=== PATIENT | female | born 1930 | race Caucasian/White ===

== ENCOUNTER 2016-05-01 13:34 | Emergency (ER) | payer MEDICARE, BC ==
[2016-05-01 13:42] VITALS: RESP 16
--- NOTE | 2016-05-01 14:02 | ED ---
General Adult HPI - General Chief complaint: Eye Problems Stated complaint: [facility]/Eye Problem Time Seen by Provider: 05/01/16 13:45 Source: patient, RN notes reviewed Mode of arrival: ambulatory Limitations: no limitations - History of Present Illness Initial comments: 85-year-old female presenting for right eye irritation and unequal pupils. Patient states that she has been crying frequently over the past several days as well as rubbing her eyes frequently secondary to her son passing away. She denies any history of eye surgery or eye issues. She does not use contact lenses. She does sometimes wear reading glasses, but otherwise states her vision has been relatively intact. She denies any headache. She denies any eye pain. She does state there is little irritation in her right eye. She denies any visual changes. She denies any periorbital swelling. She was seen at [facility] who evaluated her and sent to the ED due to unequal pupils. - Related Data Home Medications Medication Instructions Recorded Confirmed Fenofibrate [Tricor] 54 mg PO DAILY 03/24/14 05/01/16 Losartan Potassium [Cozaar] 100 mg PO DAILY 03/24/14 05/01/16 Omeprazole [PriLOSEC] 20 mg PO AC-BRKFST 03/24/14 05/01/16 amLODIPine [Norvasc] 10 mg PO DAILY 03/24/14 05/01/16 Atorvastatin [Lipitor] 80 mg PO HS 05/01/16 05/01/16 Previous Rx's Medication Instructions Recorded Polymyxin B-Trimethoprim Ophth 2 drops BOTH EYES QID 5 Days 05/01/16 [Polytrim Opthalmic] Allergies Allergy/AdvReac Type Severity Reaction Status Date / Time amoxicillin Allergy Unknown Verified 05/01/16 13:59 neomycin Allergy Unknown Verified 05/01/16 13:59 Review of Systems ROS Statement: Those systems with pertinent positive or pertinent negative responses have been documented in the HPI. ROS Other: All systems not noted in ROS Statement are negative. Past Medical History Past Medical History: Hyperlipidemia, Hypertension History of Any Multi-Drug Resistant Organisms: None Reported Past Surgical History: Cholecystectomy, Joint Replacement Additional Past Surgical History / Comment(s): left knee Past Psychological History: No Psychological Hx Reported Smoking Status: Never smoker Past Alcohol Use History: None Reported Past Drug Use History: None Reported General Exam - General Exam Comments Initial Comments: General: Awake and Alert. No acute distress. Does not appear acutely ill. Eyes: Pupils reactive to light B/L, Right pupil is larger than left. EOM intact. No nystagmus. No scleral icterus. HENT: Atraumatic, normocephalic. Mucous membranes moist. Trachea midline. Neck: The neck is supple, there is no tenderness or JVD. Cardiovascular: Regular rate and rhythm. No murmur, rub, or gallop is appreciated. Distal pulses intact. Respiratory: Lungs are clear to auscultation bilaterally. No wheezes, rales, rhonchi. No respiratory distress. Gastrointestinal: Soft, Nontender. No rebound or guarding. Non-distended. No masses or organomegaly noted. No CVA tenderness. Musculoskeletal: No tenderness. Normal ROM. No gross deformity. No strength deficits. Neurological: A&Ox3. CN II-XII grossly intact, There are no obvious motor or sensory deficits. Coordination appears grossly intact. Speech is normal. Skin: Skin is warm and dry and no rashes or lesions are noted. Psychiatric: Cooperative, appropriate mood & affect, normal judgment. Limitations: no limitations Course Vital Signs 05/01/16 05/01/16 13:38 14:20 Temperature 98.3 F 97.9 F Pulse Rate 83 78 Respiratory 16 16 Rate Blood Pressure 127/64 128/70 O2 Sat by Pulse 98 97 Oximetry Medical Decision Making - Medical Decision Making 85-year-old female presenting for right eye irritation. Patient with noted anisocoria with right pupil larger than left. She has not been on any dilating agents. However she has been stimulating her right eye frequently due to irritation and crying. It is likely that this overstimulation is the cause of her pupillary dilation at this point. She has no risk for intracranial hemorrhage or need for CT imaging at this time. She is not on blood thinners. She does not endorse any significant head injury. Visual acuity was performed and unremarkable. She has visual chapman intact in all quadrants of both eyes. Pupils were reactive bilaterally on examination in light and dark. Extraocular movements are intact without pain. She does have mild conjunctivitis of the right eye. Patient will be started on antibiotic drops for this as well as recommendation for OTC lubricating drops. Discussed close follow-up with ophthalmology on Tuesday or Tuesday. Discussed concerning signs symptoms requiring immediate return to the ED including any eye pain or fevers or significant headache. Pt is agreeable with plan and discharge home. Disposition Clinical Impression: Anisocoria, Conjunctivitis Disposition: HOME SELF-CARE Condition: Stable Instructions: Eye Lubricant (Into the eye), Conjunctivitis (ED) Prescriptions: Polymyxin B-Trimethoprim Ophth [Polytrim Opthalmic] 2 drops BOTH EYES QID 5 Days Referrals: Garth Banda MD [Primary Care Provider] - 1-2 days Vladimir Kaiser MD [STAFF PHYSICIAN] - 1-2 days Time of Disposition: 14:18
[2016-05-01 14:24] VITALS: BP 128/70; PULSE 78; TEMP 97.9
== END 2016-05-01 14:20 | disposition home or self-care (01) ==
LOC: EC 13:34
DX: H57.02 Anisocoria (principal); H10.9 Unspecified conjunctivitis; Z79.899 Other long term (current) drug therapy; E78.5 Hyperlipidemia, unspecified; I10 Essential (primary) hypertension; Z88.1 Allergy status to other antibiotic agents; Z88.0 Allergy status to penicillin
CPT/HCPCS: 99282

== ENCOUNTER → 2016-08-03 | Outpatient (CLI) | payer MEDICARE, BC ==
--- NOTE | 2016-08-04 09:02 | BD ---
EXAMINATION TYPE: MG DEXA axial skeleton. DATE OF EXAM: 08/03/2016 10:28 AM CLINICAL HISTORY: Height: 60 inches Weight: 198 FRAX RISK QUESTIONS: Alcohol (3 or more units per day): no Family History (Parent hip fracture): no Glucocorticoids (More than 3mos): no (Ex: prednisone, prednisolone, methylprednisolone, dexamethasone, and hydrocortisone). History of Fracture in Adulthood: no Secondary Osteoporosis: 1. Type 1 Diabetes: no 2. Hyperthyroidism: no 3. Menopause before 45: no 4. Malnutrition: no 5. Chronic liver disease: no Rheumatoid Arthritis: no Current Tobacco Use: never RISK FACTORS HISTORY OF: Family History of Osteoporosis: no Drink Alcohol: very very rarely Active: yes Diet low in dairy products/other sources of calcium: at least one serving a day Postmenopausal woman: yes Take estrogen and/or progesterone medications: not now How long: hormonal contraceptives 3 years Lost more than 2 inches in height since high school: no Frequent falls: no Poor Health: no Hyperparathyroidism: no Adrenal Insufficiency: no MEDICATIONS: Prednisone or other steroids: no Thyroid Medications: no Osteoporosis Medications: no Additional Medications: blood pressure meds, cholesterol meds Additional History: knee replacement EXAM MEASUREMENTS: Bone mineral densitometry was performed using the [employer] System. Bone mineral density as measured about the Lumbar spine is: ----- L1-L4(G/cm2): 1.249 T Score Values are as follows: ----- L2: 0.4 ----- L3: 0.2 ----- L4: 1.8 ----- L1-L4: 0.6 Bone mineral density has: Increased 8.1% since study of: 03/08/2012 Bone mineral density about the R hip (g/cm2): 0.929 Bone mineral density about the L hip (g/cm2): 0.844 T Score values are as follows: -----R Neck: -0.8 -----L Neck: -0.7 -----R Total: 0.2 -----L Total: 0.8 Bone mineral density has: Increased 4.7% since study of: 03/08/2012 IMPRESSION: Normal (Values between +1 and -1 indicate normal bone mass). Consider repeating this study in 5 year s or sooner if there is some new clinical indication.Lumbar Spine, Bilateral Necks & Bilateral Totals NOTE: T-SCORE=SD OF THE YOUNG ADULT MEAN.
--- NOTE | 2016-08-04 13:53 | MM ---
Reason for exam: screening (asymptomatic). Last mammogram was performed 1 year and 2 months ago. History: Patient is postmenopausal. Family history of breast cancer in maternal cousin. Took hormonal contraceptives for 3 years. Physical Findings: A clinical breast exam by your physician is recommended on an annual basis and results should be correlated with mammographic findings. MG 3D Screening Mammo W/Cad Bilateral CC and MLO view(s) were taken. Prior study comparison: May 27, 2015, bilateral MG screening mammo w CAD. April 15, 2014, bilateral MG screening mammo w CAD. There are scattered fibroglandular densities. Finding: There are typically benign grouped calcifications in the left breast. There is a chronic nodularity bilaterally. Increase in number of calcifications since May 27, 2015 and April 15, 2014. ASSESSMENT: Incomplete: need additional imaging evaluation, BI-RAD 0 RECOMMENDATION: Special view mammogram of the left breast. [facility] will attempt to contact patient to return for supplemental views.
== END | disposition home or self-care (01) ==
LOC: RADMAMWWP 09:11
PROVIDERS: ATTEND Family Medicine
DX: Z12.31 Encounter for screening mammogram for malignant neoplasm of breast (principal); N95.1 Menopausal and female climacteric states
CPT/HCPCS: 77080; 77063; G0202

== ENCOUNTER → 2016-08-06 | Outpatient (CLI) | payer MEDICARE, BC ==
--- NOTE | 2016-08-06 09:44 | MM ---
Reason for exam: additional evaluation requested from abnormal screening. Last mammogram was performed less than 1 month ago. History: Patient is postmenopausal. Family history of breast cancer in maternal cousin. Took hormonal contraceptives for 3 years. Physical Findings: Nurse did not find any significant physical abnormalities on exam. MG 3D Work Up W/Cad LT CC with magnification, LM with magnification, and LM view(s) were taken of the left breast. Prior study comparison: August 03, 2016, bilateral MG 3d screening mammo w/cad. May 27, 2015, bilateral MG screening mammo w CAD. Three punctate calcifications in the left breast are likely benign. These results were verbally communicated with the patient and result sheet given to the patient on 08/06/16. ASSESSMENT: Probably benign, BI-RAD 3 RECOMMENDATION: Follow-up diagnostic mammogram of the left breast in 6 months.
== END | disposition home or self-care (01) ==
LOC: RADMAMWWP 08:14
PROVIDERS: ATTEND Family Medicine
DX: R92.8 Other abnormal and inconclusive findings on diagnostic imaging of breast (principal)
CPT/HCPCS: G0206; G0279

== ENCOUNTER 2016-11-24 08:14 | Day surgery (SDC) | payer MEDICARE, BC ==
[2016-11-22 09:41] VITALS: BMI 38.7
[2016-11-24 09:59] VITALS: TEMP 97.7
[2016-11-24] MEDS: LACTATED RINGERS 1,000 ML IV SCH ×2 (09:59→10:33)
[2016-11-24] MEDS ORDERED: PROPOFOL 10 MG/ML 20 ML VIAL IV ONE (10:33)
[2016-11-24] MEDS ORDERED: LIDOCAINE 1% INJ 10MG/ML (20 ML MDV) ONE (10:33)
--- NOTE | 2016-11-24 11:00 | P.PCN ---
Date of Procedure: 11/24/16 Preoperative Diagnosis: Postoperative Diagnosis: Procedure(s) Performed: BRIEF HISTORY: Patient is a 86-year-old pleasant white female, scheduled for an elective colonoscopy as a part of evaluation of prior history of colon polyps. Last colonoscopy was done 6 years ago. PROCEDURE PERFORMED: Colonoscopy. PREOPERATIVE DIAGNOSIS: History of colon polyps. IV sedation per Anesthesia. PROCEDURE: After informed consent was obtained, the patient, was brought into the endoscopy unit. IV sedation was administered by Anesthesia under continuous monitoring. Digital rectal examination was normal. Initially the Olympus CF- 160 flexible video colonoscope was then inserted in the rectum, gradually advanced into the sigmoid colon and further advancement was not possible. The scope was removed and a pediatric colonoscope was then introduced into the rectum and gradually advanced into the cecum without any difficulty. Careful examination was performed as the scope was gradually being withdrawn. Ileocecal valve and the appendiceal orifice were visualized and appeared normal. Prep was excellent. Mucosa of the cecum, ascending colon, transverse colon, descending colon, sigmoid colon, and rectum appeared normal. Moderate sigmoidal reticulosis seen. Retroflexion was performed in the rectum and no lesions were seen. The patient tolerated the procedure well. IMPRESSION: Normal-appearing colon from rectum to cecum with no evidence of colorectal neoplasia . Moderate sigmoid diverticulosis. RECOMMENDATIONS: Findings of this examination were discussed with the patient as well as a family. She was advised to be a high-fiber diet. She does not need to have any further surveillance colonoscopies at her age.. Implants: Indications for Procedure: Operative Findings: Description of Procedure:
[2016-11-24 11:28] VITALS: RESP 16
[2016-11-24 11:37] VITALS: BP 128/72; PULSE 63
== END 2016-11-24 11:58 | disposition home or self-care (01) ==
LOC: ORWHC2ENDO 08:14
PROVIDERS: ATTEND Internal Medicine Gastroenterology
DX: Z12.11 Encounter for screening for malignant neoplasm of colon (principal); K57.30 Diverticulosis of large intestine without perforation or abscess without bleeding; Z86.010 Personal history of colon polyps; K21.9 Gastro-esophageal reflux disease without esophagitis; I10 Essential (primary) hypertension; E78.5 Hyperlipidemia, unspecified; Z79.899 Other long term (current) drug therapy; Z88.1 Allergy status to other antibiotic agents; Z88.0 Allergy status to penicillin; Z91.09 Other allergy status, other than to drugs and biological substances
CPT/HCPCS: J2001; J2704; G0105

== ENCOUNTER 2017-10-08 16:40 | Inpatient (IN) | payer MEDICARE, BC ==
[2017-10-08] MEDS ORDERED: SODIUM CHLORIDE 0.9% 1,000 ML IV ONE (16:51)
[2017-10-08] MEDS ORDERED: PROPOFOL 1,000 MG in EMPTY BAG 1 BAG IV ONE (16:53)
[2017-10-08] MEDS ORDERED: MIDAZOLAM 1 MG/ML 5 ML VIAL IV STA (17:04)
[2017-10-08] MEDS ORDERED: SUCCINYLCHOLINE CHLORIDE VIAL 200 MG/10 ML VIAL IV STA (17:04)
[2017-10-08] MEDS ORDERED: LABETALOL 5 MG/ML VIAL MDV IVP STA (17:07)
[2017-10-08 17:12] LABS: Appearance,Urine Clear (Clear); Bilirubin,Urine Negative (Negative); Blood,Urine Negative (Negative); Color,Urine Yellow; Glucose,Urine (UA) Negative (Negative); Ketones,Urine Negative (Negative); Leukocyte Esterase,Urine Negative (Negative); Nitrite,Urine Negative (Negative); PH, Urine 5.5 (5.0-8.0); Protein,Urine Negative (Negative); Specific Gravity,Urine 1.017 (1.001-1.035); Urobilinogen,Urine <2.0 mg/dL (<2.0)
[2017-10-08 17:19] LABS: Basophils # (A) 0.1 k/uL (0-0.2); Basophils % (A) 1 %; Eosinophils # (A) 0.4 k/uL (0-0.7); Eosinophils % (A) 4 %; HCT 37.5 % (34.0-46.0); HGB 12.3 gm/dL (11.4-16.0); Lymphocytes # (A) 1.7 k/uL (1.0-4.8); Lymphocytes % (A) 19 %; MCH 27.3 pg (25.0-35.0); MCHC 32.8 g/dL (31.0-37.0); MCV 83.3 fL (80.0-100.0); Mean Platelet Volume 7.1; Monocytes # (A) 0.8 k/uL (0-1.0); Monocytes % (A) 9 %; Neutrophils # (A) 5.9 k/uL (1.3-7.7); Neutrophils % (A) 64 %; Platelet Count 351 k/uL (150-450); RBC 4.51 m/uL (3.80-5.40); RDW 15.5 % (11.5-15.5); WBC 9.2 k/uL (3.8-10.6)
[2017-10-08 17:21] LABS: Amphetamine Screen,Urine Not Detected (NotDetected); Barbiturate Screen,Urine Not Detected (NotDetected); Benzodiazepines Screen,Urine Not Detected (NotDetected); Cocaine Screen,Urine Not Detected (NotDetected); Methadone Screen, Urine Not Detected (NotDetected); Opiate Screen,Urine Not Detected (NotDetected); Oxycodone Screen, Urine Not Detected (NotDetected); Phencyclidine Screen,Urine Not Detected (NotDetected); Tricyclic Antidepressant,Urine Not Detected (NotDetected); Urn Cannabinoid Scrn Not Detected (NotDetected)
[2017-10-08 17:25] LABS: Calcium 9.4 mg/dL (8.4-10.2); Magnesium 1.9 mg/dL (1.6-2.3); Total Bilirubin 0.3 mg/dL (0.2-1.3); Total Protein 6.3 g/dL (6.3-8.2)
--- NOTE | 2017-10-08 17:33 | ED ---
Neuro HPI - General Chief Complaint: Neuro Symptoms/Deficit Stated Complaint: Poss.stroke Time Seen by Provider: 10/08/17 16:40 Source: patient, EMS, RN notes reviewed Mode of arrival: EMS Limitations: altered mental status - History of Present Illness Is the patient presenting with stroke symptoms?: Yes Initial Comments: This is a 86-year-old female who apparently was well this morning at 11 AM who was found unresponsive medication floor by her who heard a thump and found her on the floor. She was brought in by EMS she was noted have pinpoint pupils not responsive she was actually well. Initially the pupils were equal then later thought to have the right 73 mm the left side being 1-2 mm. She was assisted with bag valve mask.. No history of stroke in the past. Upon arrival she was found to be in respiratory distress with gagging. - Related Data Home Medications: Home Medications Medication Instructions Recorded Confirmed Fenofibrate [Tricor] 54 mg PO HS 03/24/14 10/08/17 Losartan Potassium [Cozaar] 100 mg PO QAM 03/24/14 10/08/17 amLODIPine [Norvasc] 10 mg PO QAM 03/24/14 10/08/17 Atorvastatin [Lipitor] 80 mg PO HS 05/01/16 10/08/17 Allergies/Adverse Reactions: Allergies Allergy/AdvReac Type Severity Reaction Status Date / Time amoxicillin Allergy Rash/Hives Verified 11/22/16 09:19 neomycin Allergy PER Verified 11/22/16 09:19 ALLERGY TESTING adhesive tape AdvReac RED SKIN, Verified 11/22/16 09:39 Review of Systems ROS Statement: Those systems with pertinent positive or pertinent negative responses have been documented in the HPI. ROS Other: All systems not noted in ROS Statement are negative. Limitations: ROS unobtainable due to patients medical condition General Exam - General Exam Comments Initial Comments: This is a well-developed well-nourished unresponsive female who was noted to be posturing at times. With agonal respirations. Limitations: altered mental status General appearance: obtunded Head exam: Present: atraumatic, normocephalic, normal inspection Eye exam: Present: other (Pupils are pinpoint bilaterally minimally reactive) ENT exam: Present: mucous membranes moist, other (Patient demonstrates no) Neck exam: Present: normal inspection. Absent: tenderness, meningismus, lymphadenopathy Respiratory exam: Present: normal lung sounds bilaterally. Absent: respiratory distress, wheezes, rales, rhonchi, stridor Cardiovascular Exam: Present: regular rate, normal rhythm, normal heart sounds. Absent: systolic murmur, diastolic murmur, rubs, gallop, clicks GI/Abdominal exam: Present: soft, normal bowel sounds. Absent: distended, tenderness, guarding, rebound, rigid Extremities exam: Present: normal inspection, full ROM, normal capillary refill. Absent: tenderness, pedal edema, joint swelling, calf tenderness Back exam: Present: normal inspection Neurological exam: Present: altered, other Psychiatric exam: Present: other (Unable to evaluate) Skin exam: Present: warm, dry, intact, normal color. Absent: rash Stroke MDM - Lab Data Result diagrams: 10/08/17 16:40 10/08/17 16:40 Lab Results 10/08/17 10/08/17 10/08/17 Range/Units 16:40 16:40 16:40 WBC 9.2 (3.8-10.6) k/uL RBC 4.51 (3.80-5.40) m/uL Hgb 12.3 (11.4-16.0) gm/dL Hct 37.5 (34.0-46.0) % MCV 83.3 (80.0-100.0) fL MCH 27.3 (25.0-35.0) pg MCHC 32.8 (31.0-37.0) g/dL RDW 15.5 (11.5-15.5) % Plt Count 351 (150-450) k/uL Neutrophils % 64 % Lymphocytes % 19 % Monocytes % 9 % Eosinophils % 4 % Basophils % 1 % Neutrophils # 5.9 (1.3-7.7) k/uL Lymphocytes # 1.7 (1.0-4.8) k/uL Monocytes # 0.8 (0-1.0) k/uL Eosinophils # 0.4 (0-0.7) k/uL Basophils # 0.1 (0-0.2) k/uL PT (9.0-12.0) sec INR (<1.2) APTT (22.0-30.0) sec D-Dimer (<0.60) mg/L FEU Sample Site ABG pH (7.35-7.45) ABG pCO2 (35-45) mmHg ABG pO2 (83-108) mmHg ABG HCO3 (21-25) mmol/L ABG Total CO2 (19-24) mmol/L ABG O2 Saturation (94-97) % ABG Base Excess mmol/L Ji Test FiO2 % Sodium (137-145) mmol/L Potassium (3.5-5.1) mmol/L Chloride (98-107) mmol/L Carbon Dioxide (22-30) mmol/L Anion Gap mmol/L BUN (7-17) mg/dL Creatinine (0.52-1.04) mg/dL Est GFR (CKD-EPI)AfAm (>60 ml/min/1.73 sqM) Est GFR (CKD-EPI)NonAf (>60 ml/min/1.73 sqM) Glucose (74-99) mg/dL Calcium (8.4-10.2) mg/dL Magnesium (1.6-2.3) mg/dL Total Bilirubin (0.2-1.3) mg/dL AST (14-36) U/L ALT (9-52) U/L Alkaline Phosphatase (38-126) U/L Ammonia <9 (<30) umol/L Total Creatine Kinase 85 (30-135) U/L CK-MB (CK-2) 1.8 (0.0-2.4) ng/mL CK-MB (CK-2) Rel Index 2.1 Troponin I <0.012 (0.000-0.034) ng/mL Total Protein (6.3-8.2) g/dL Albumin (3.5-5.0) g/dL Urine Color Urine Appearance (Clear) Urine pH (5.0-8.0) Ur Specific [place] (1.001-1.035) Urine Protein (Negative) Urine Glucose (UA) (Negative) Urine Ketones (Negative) Urine Blood (Negative) Urine Nitrite (Negative) Urine Bilirubin (Negative) Urine Urobilinogen (<2.0) mg/dL Ur Leukocyte Esterase (Negative) Urine Opiates Screen (NotDetected) Ur Oxycodone Screen (NotDetected) Urine Methadone Screen (NotDetected) Ur Propoxyphene Screen (NotDetected) Ur Barbiturates Screen (NotDetected) U Tricyclic Antidepress (NotDetected) Ur Phencyclidine Scrn (NotDetected) Ur Amphetamines Screen (NotDetected) U Methamphetamines Scrn (NotDetected) U Benzodiazepines Scrn (NotDetected) Urine Cocaine Screen (NotDetected) U Marijuana (THC) Screen (NotDetected) 10/08/17 10/08/17 10/08/17 Range/Units 16:40 16:40 16:40 WBC (3.8-10.6) k/uL RBC (3.80-5.40) m/uL Hgb (11.4-16.0) gm/dL Hct (34.0-46.0) % MCV (80.0-100.0) fL MCH (25.0-35.0) pg MCHC (31.0-37.0) g/dL RDW (11.5-15.5) % Plt Count (150-450) k/uL Neutrophils % % Lymphocytes % % Monocytes % % Eosinophils % % Basophils % % Neutrophils # (1.3-7.7) k/uL Lymphocytes # (1.0-4.8) k/uL Monocytes # (0-1.0) k/uL Eosinophils # (0-0.7) k/uL Basophils # (0-0.2) k/uL PT 9.7 (9.0-12.0) sec INR 1.0 (<1.2) APTT 23.8 (22.0-30.0) sec D-Dimer 1.51 H (<0.60) mg/L FEU Sample Site ABG pH (7.35-7.45) ABG pCO2 (35-45) mmHg ABG pO2 (83-108) mmHg ABG HCO3 (21-25) mmol/L ABG Total CO2 (19-24) mmol/L ABG O2 Saturation (94-97) % ABG Base Excess mmol/L Ji Test FiO2 % Sodium 139 (137-145) mmol/L Potassium 4.0 (3.5-5.1) mmol/L Chloride 106 (98-107) mmol/L Carbon Dioxide 26 (22-30) mmol/L Anion Gap 7 mmol/L BUN 35 H (7-17) mg/dL Creatinine 0.80 (0.52-1.04) mg/dL Est GFR (CKD-EPI)AfAm 78 (>60 ml/min/1.73 sqM) Est GFR (CKD-EPI)NonAf 68 (>60 ml/min/1.73 sqM) Glucose 124 H (74-99) mg/dL Calcium 9.4 (8.4-10.2) mg/dL Magnesium 1.9 (1.6-2.3) mg/dL Total Bilirubin 0.3 (0.2-1.3) mg/dL AST 23 (14-36) U/L ALT 29 (9-52) U/L Alkaline Phosphatase 73 (38-126) U/L Ammonia (<30) umol/L Total Creatine Kinase (30-135) U/L CK-MB (CK-2) (0.0-2.4) ng/mL CK-MB (CK-2) Rel Index Troponin I (0.000-0.034) ng/mL Total Protein 6.3 (6.3-8.2) g/dL Albumin 4.0 (3.5-5.0) g/dL Urine Color Urine Appearance (Clear) Urine pH (5.0-8.0) Ur Specific [place] (1.001-1.035) Urine Protein (Negative) Urine Glucose (UA) (Negative) Urine Ketones (Negative) Urine Blood (Negative) Urine Nitrite (Negative) Urine Bilirubin (Negative) Urine Urobilinogen (<2.0) mg/dL Ur Leukocyte Esterase (Negative) Urine Opiates Screen (NotDetected) Ur Oxycodone Screen (NotDetected) Urine Methadone Screen (NotDetected) Ur Propoxyphene Screen (NotDetected) Ur Barbiturates Screen (NotDetected) U Tricyclic Antidepress (NotDetected) Ur Phencyclidine Scrn (NotDetected) Ur Amphetamines Screen (NotDetected) U Methamphetamines Scrn (NotDetected) U Benzodiazepines Scrn (NotDetected) Urine Cocaine Screen (NotDetected) U Marijuana (THC) Screen (NotDetected) 10/08/17 10/08/17 Range/Units 16:55 18:23 WBC (3.8-10.6) k/uL RBC (3.80-5.40) m/uL Hgb (11.4-16.0) gm/dL Hct (34.0-46.0) % MCV (80.0-100.0) fL MCH (25.0-35.0) pg MCHC (31.0-37.0) g/dL RDW (11.5-15.5) % Plt Count (150-450) k/uL Neutrophils % % Lymphocytes % % Monocytes % % Eosinophils % % Basophils % % Neutrophils # (1.3-7.7) k/uL Lymphocytes # (1.0-4.8) k/uL Monocytes # (0-1.0) k/uL Eosinophils # (0-0.7) k/uL Basophils # (0-0.2) k/uL PT (9.0-12.0) sec INR (<1.2) APTT (22.0-30.0) sec D-Dimer (<0.60) mg/L FEU Sample Site RRA ABG pH 7.39 (7.35-7.45) ABG pCO2 43 (35-45) mmHg ABG pO2 241 H (83-108) mmHg ABG HCO3 26 H (21-25) mmol/L ABG Total CO2 27 H (19-24) mmol/L ABG O2 Saturation 99.7 H (94-97) % ABG Base Excess 1.0 mmol/L Ji Test Yes FiO2 100 % Sodium (137-145) mmol/L Potassium (3.5-5.1) mmol/L Chloride (98-107) mmol/L Carbon Dioxide (22-30) mmol/L Anion Gap mmol/L BUN (7-17) mg/dL Creatinine (0.52-1.04) mg/dL Est GFR (CKD-EPI)AfAm (>60 ml/min/1.73 sqM) Est GFR (CKD-EPI)NonAf (>60 ml/min/1.73 sqM) Glucose (74-99) mg/dL Calcium (8.4-10.2) mg/dL Magnesium (1.6-2.3) mg/dL Total Bilirubin (0.2-1.3) mg/dL AST (14-36) U/L ALT (9-52) U/L Alkaline Phosphatase (38-126) U/L Ammonia (<30) umol/L Total Creatine Kinase (30-135) U/L CK-MB (CK-2) (0.0-2.4) ng/mL CK-MB (CK-2) Rel Index Troponin I (0.000-0.034) ng/mL Total Protein (6.3-8.2) g/dL Albumin (3.5-5.0) g/dL Urine Color Yellow Urine Appearance Clear (Clear) Urine pH 5.5 (5.0-8.0) Ur Specific [place] 1.017 (1.001-1.035) Urine Protein Negative (Negative) Urine Glucose (UA) Negative (Negative) Urine Ketones Negative (Negative) Urine Blood Negative (Negative) Urine Nitrite Negative (Negative) Urine Bilirubin Negative (Negative) Urine Urobilinogen <2.0 (<2.0) mg/dL Ur Leukocyte Esterase Negative (Negative) Urine Opiates Screen Not Detected (NotDetected) Ur Oxycodone Screen Not Detected (NotDetected) Urine Methadone Screen Not Detected (NotDetected) Ur Propoxyphene Screen Not Detected (NotDetected) Ur Barbiturates Screen Not Detected (NotDetected) U Tricyclic Antidepress Not Detected (NotDetected) Ur Phencyclidine Scrn Not Detected (NotDetected) Ur Amphetamines Screen Not Detected (NotDetected) U Methamphetamines Scrn Not Detected (NotDetected) U Benzodiazepines Scrn Not Detected (NotDetected) Urine Cocaine Screen Not Detected (NotDetected) U Marijuana (THC) Screen Not Detected (NotDetected) - Medical Decision Making The patient is not a candidate for TPA at this time CTs were negative CT angios negative except for the findings of a stable aneurysm. The etiology of the syncopal episode is likely secondary to another etiology. Patient will be admitted for further evaluation including neurology - EKG Data -: EKG Interpreted by Id EKG shows normal: sinus rhythm ([place] [address] QRS 70 daily since QTC of/[address]-T wave configuration and prolonged QT is noted.) Past Medical History Past Medical History: Hyperlipidemia, Hypertension Additional Past Medical History / Comment(s): HAD POSITIVE GUAC TEST, HX OF POLYPS History of Any Multi-Drug Resistant Organisms: None Reported Past Surgical History: Cholecystectomy, Joint Replacement Additional Past Surgical History / Comment(s): left knee Past Anesthesia/Blood Transfusion Reactions: No Reported Reaction Past Psychological History: No Psychological Hx Reported Smoking Status: Never smoker Past Alcohol Use History: None Reported Past Drug Use History: None Reported - Past Family History Mother Family Medical History: Cancer Additional Family Medical History / Comment(s): COLON, LUNG Brother(s) Family Medical History: Cancer Additional Family Medical History / Comment(s): X2 BROTHERS Course Vital Signs 10/08/17 10/08/17 10/08/17 16:45 16:48 17:07 Temperature 98.1 F Pulse Rate 98 89 67 Respiratory 12 18 18 Rate Blood Pressure 226/98 196/82 186/80 O2 Sat by Pulse 98 100 99 Oximetry 10/08/17 10/08/17 10/08/17 17:23 17:38 17:51 Temperature Pulse Rate 70 73 72 Respiratory 18 18 18 Rate Blood Pressure 186/80 195/84 204/85 O2 Sat by Pulse 99 99 100 Oximetry 10/08/17 10/08/17 10/08/17 17:55 18:10 18:25 Temperature Pulse Rate 76 76 73 Respiratory 18 18 18 Rate Blood Pressure 180/77 197/84 155/72 O2 Sat by Pulse 100 100 100 Oximetry 10/08/17 10/08/17 18:38 18:50 Temperature Pulse Rate 76 81 Respiratory 18 18 Rate Blood Pressure 172/78 172/83 O2 Sat by Pulse 100 99 Oximetry - Reevaluation(s) Reevaluation #1: 10/08/17 19:48 Reevaluation patient return from CAT scan revealed no change in her status. Reevaluation #2: 10/08/17 19:49 Dr. Britton was available and did come to evaluate the patient. A CT angios was ordered. Reevaluation #3: 10/08/17 19:49 I did discuss the findings with the patient's family members who were present. Procedures - Intubation Time Out Performed: No (Emergent) Paralytic: Succinylcholine Mg Given: 100 Laryngoscope: Tovar Size: 3 ET Tube Size: 7.5 ET Tube Uncuffed: No (cuffed) Tube Secured Depth (cm): 23 Tube Secured Location: lips Tube Placement Confirmation: visualized tube passing through cords, equal breath sounds bilaterally (Approximate 2.5 cm above the lorenzo on x-ray.), confirmation by capnometry Patient Tolerated Procedure: well Critical Care Time Critical Care Time: Yes Critical Care Time: 45 minutes of critical care time which includes monitoring the EMS run and discussed with paramedics history physical labs x-rays. Multiple reevaluation of the patient response to management. Discussed with the family members on several occasions discussion with Dr. Britton. Discussed with Dr. Yeager. Admission orders documentation the above. Disposition Clinical Impression: Syncope and collapse, Respiratory failure Disposition: ADMITTED IP TO THIS [facility] Condition: Critical Referrals: Garth Banda MD [Primary Care Provider] - 1-2 days
[2017-10-08 17:34] LABS: Creatine Kinase 85 U/L (30-135)
--- NOTE | 2017-10-08 17:44 | XR ---
EXAMINATION TYPE: XR chest 1V portable DATE OF EXAM: 10/08/2017 COMPARISON: Chest x-ray January 23, 2015 HISTORY: Tube placement found unresponsive. TECHNIQUE: Single frontal view of the chest is obtained. FINDINGS: There is new endotracheal tube with tip at inferior aortic knob level, approximately 1 to 2 cm above olrenzo, recommend pulling back 3 cm. There is new orogastric tube projecting below diaphra gm. There is cardiomegaly with atherosclerotic and ectatic thoracic aorta. There is chronic parenchymal c hange without suspicious new focal airspace opacity, pleural effusion, or pneumothorax seen bilateral ly. Osseous structures are demineralized. IMPRESSION: 1. New OGT satisfactory in position. New ET above lorenzo, recommend pulling back 3 cm to be more idea l position. 2. Cardiomegaly and chronic parenchymal changes without definitive suspicious acute infiltrate.
[2017-10-08 17:47] LABS: Creatine Kinase MB 1.8 ng/mL (0.0-2.4); Troponin I <0.012 ng/mL (0.000-0.034)
--- NOTE | 2017-10-08 17:49 | CT ---
EXAMINATION TYPE: CT brain cspine wo con DATE OF EXAM: 10/08/2017 COMPARISON: CT brain January 23, 2015 HISTORY: Fell unresponsive headache and neck pain. CT DLP: 1587 mGycm. Automated Exposure Control for Dose Reduction was Utilized. TECHNIQUE: CT scan of the head and cervical spine are performed without contrast. FINDINGS: There is no acute intracranial hemorrhage or midline shift identified. There is ventricul ar and sulcal prominence consistent with diffuse cerebral atrophy. There is low-attenuation in the p eriventricular white matter. Scleral Calcification in both globes is seen. Paranasal sinuses are nevin r. Vascular consultation of distal internal carotid arteries bilaterally is present. The calvarium is intact. Cervical spine is visualized in its entirety from C1 through upper thoracic levels and demonstrates d extroconvex scoliosis centered in the lower cervical spine on coronal images without evidence of acut e fracture or dislocation. Prevertebral soft tissue appears within normal limits. The C1-C2 articul ation is within normal limits on the coronal images. Vertebral body heights are maintained. There is moderate to advanced multilevel spurring and disc spa ce narrowing from C3 - C4 through C5-C6 levels. Posterior spur disc complexes are effacing anterior t hecal sac at these levels on sagittal images. There is thickening and calcification of the posterior longitudinal ligament at level of anterior foramen magnum. Axial images show multilevel uncovertebral facet degenerative changes bilaterally and marginal spurring contributing to multilevel neural christelle inal narrowing. There is partial visualization of endotracheal and orogastric tubes. IMPRESSION: 1. There is no acute fracture or dislocation evident in the cervical spine. Scoliosis and multilevel degenerative changes as detailed above. 2. No acute intracranial hemorrhage or midline shift is seen. There is mild to moderate diffuse cereb ral atrophy and chronic small vessel ischemic change noted.
[2017-10-08 17:51] LABS: Partial Thromboplastin Time 23.8 sec (22.0-30.0); Prothrombin Time 9.7 sec (9.0-12.0)
[2017-10-08 18:28] LABS: ABG HCO3 26 mmol/L (21-25); ABG Oxygen Saturation 99.7 % (94-97); ABG PCO2 43 mmHg (35-45); ABG PH 7.39 (7.35-7.45); ABG PO2 241 mmHg (83-108); ABG TCO2 27 mmol/L (19-24)
--- NOTE | 2017-10-08 19:04 | CT ---
EXAMINATION TYPE: CT angio head neck DATE OF EXAM: 10/08/2017 HISTORY: Fell unresponsive with headache and neck pain. COMPARISON: CT brain earlier today and January 23, 2015 CT DLP: 337.9 mGycm. Automated Exposure Control for Dose Reduction was Utilized. TECHNIQUE: CTA scan of the head and neck are performed with IV Contrast, patient injected with 65 mL of Isovue 370, axial images are obtained, coronal and sagittal reformatted images are reviewed. Thre e-D reconstructed images are created on an independent workstation and reviewed. FINDINGS: Carotid/Vascular Structures: There is mild to moderate peripheral plaque in the aortic arch. There is 4 vessel origin from aortic arch which is normal variant. The right common carotid artery shows tort uous course near origin but normal origin from the brachiocephalic artery. There is no significant pl aque or stenosis in the right common or internal carotid arteries including at level of carotid bulb. There is tortuous course to the right internal carotid artery identified. Mild calcified plaque supr aclinoid segment is seen . There is patent right external carotid artery without significant plaque o r stenosis that has tortuous course. There is slight tortuous course to the left common carotid artery. No significant plaque or stenosis is seen including at level left carotid bulb. There is tortuous course to the left internal carotid a rtery without significant plaque or stenosis. Moderate to advanced calcified plaque supraclinoid segm ent is identified without significant stenosis. There is dominant right vertebral artery. There is nonvisualization of distal left vertebral artery c onsistent with significant narrowing or occlusion. Hypoplastic posterior communicating arteries are n oted bilaterally. No significant focal stenosis or aneurysmal change is seen. There is focal eccentric saccular 10 x 8 mm aneurysm in region of right anterior communicating artery origin near right A2 segment seen best image 18 series 9. No significant focal stenosis is evident. In retrospect this likely has been present back through noncontrast CT January 23, 2015 axial image 3 9. It is less well seen on noncontrast CT today. Other: There is redemonstration of diffuse cerebral atrophy and chronic small vessel ischemic change. There is partial visualization of endotracheal and orogastric tubes. There is rotary scoliotic curva ture positioning. There is moderate to advanced spurring and disc space narrowing C3-C4 through C5-C6 levels. IMPRESSION: 1. No significant stenosis in common or internal carotid arteries bilaterally. 2. 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 Ne urosurgical and/or endovascular surgical follow-up advised. Exact origin uncertain even after reviewi ng external postprocessing and raw data images. Case discussed with ordering ER physician via telephone at time of dictation.
[2017-10-08] MEDS ORDERED: NALOXONE 0.4 MG/ML 1 ML VIAL IV PRN (19:55)
[2017-10-08 20:49] LABS: Glucose,Whole Blood 128 mg/dL (75-99)
[2017-10-08] MEDS ORDERED: PROPOFOL 1,000 MG in EMPTY BAG 1 BAG IV SCH (22:15)
[2017-10-09 00:43] LABS: Appearance,Urine Clear (Clear); Bacteria,Urine Rare /hpf; Bilirubin,Urine Negative (Negative); Blood,Urine Negative (Negative); Color,Urine Light Yellow; Glucose,Urine (UA) Negative (Negative); Ketones,Urine Negative (Negative); Leukocyte Esterase,Urine Small (Negative); Mucus,Urine Rare /hpf; Nitrite,Urine Negative (Negative); Protein,Urine Negative (Negative); RBC,Urine 1 /hpf (0-5); Specific Gravity,Urine 1.025 (1.001-1.035); Squamous Epithelial Cell,Urine <1 /hpf (0-4); Urobilinogen,Urine <2.0 mg/dL (<2.0); WBC,Urine 7 /hpf (0-5)
[2017-10-09] MEDS: SODIUM CHLORIDE 0.9% 1,000 ML IV SCH ×4 (01:17→20:07)
[2017-10-09 04:31] LABS: Basophils # (A) 0.1 k/uL (0-0.2); Basophils % (A) 1 %; Eosinophils # (A) 0.2 k/uL (0-0.7); Eosinophils % (A) 2 %; HCT 36.4 % (34.0-46.0); HGB 11.9 gm/dL (11.4-16.0); Lymphocytes # (A) 0.9 k/uL (1.0-4.8); Lymphocytes % (A) 8 %; MCH 27.4 pg (25.0-35.0); MCHC 32.7 g/dL (31.0-37.0); MCV 83.8 fL (80.0-100.0); Mean Platelet Volume 7.2; Monocytes # (A) 0.8 k/uL (0-1.0); Monocytes % (A) 7 %; Neutrophils # (A) 9.2 k/uL (1.3-7.7); Neutrophils % (A) 82 %; Platelet Count 326 k/uL (150-450); RBC 4.35 m/uL (3.80-5.40); RDW 15.3 % (11.5-15.5); WBC 11.3 k/uL (3.8-10.6)
[2017-10-09 04:57] LABS: Anion Gap 9 mmol/L; Blood Urea Nitrogen 24 mg/dL (7-17); Calcium 9.3 mg/dL (8.4-10.2); Carbon Dioxide 24 mmol/L (22-30); Chloride 107 mmol/L (98-107); Glucose 113 mg/dL (74-99); Magnesium 1.9 mg/dL (1.6-2.3); Phosphorus 3.4 mg/dL (2.5-4.5); Potassium 3.7 mmol/L (3.5-5.1); Sodium 140 mmol/L (137-145)
[2017-10-09 05:21] LABS: ABG Base Excess 0.2 mmol/L; ABG HCO3 25 mmol/L (21-25); ABG Oxygen Saturation 98.5 % (94-97); ABG PCO2 40 mmHg (35-45); ABG PH 7.41 (7.35-7.45); ABG PO2 113 mmHg (83-108); ABG TCO2 26 mmol/L (19-24)
[2017-10-09] MEDS: MAGNESIUM SULFATE-D5W PMX 1 GM in DEXTROSE/WATER 1 100ML.BAG IVPB SCH ×2 (06:56→08:10)
[2017-10-09] MEDS ORDERED: POTASSIUM BICARBONATE/CIT AC 20 MEQ TABLET.EFF NG-TUBE SCH (07:00)
[2017-10-09] MEDS: CHLORHEXIDINE GLUCONATE 15 ML CUP MUCOUS MEM SCH ×2 (08:10→20:06)
[2017-10-09] MEDS: PANTOPRAZOLE 40 MG/10 ML VIAL IV SCH (08:10)
--- NOTE | 2017-10-09 08:12 | XR ---
EXAMINATION TYPE: XR chest 1V portable DATE OF EXAM: 10/09/2017 HISTORY: Tube placement. REFERENCE: Previous study dated 10/08/2017. FINDINGS: The patient is ET tube and NG tube remain in place, unchanged in appearance. The heart is enlarged. There is no definite pneumonia or edema. I could not exclude a small left effu evan. IMPRESSION: 1. CARDIOMEGALY. 2. I CANNOT EXCLUDE A SMALL LEFT EFFUSION.
[2017-10-09] MEDS: ASPIRIN 325 MG TAB PO SCH (08:44)
[2017-10-09] MEDS: HEPARIN SODIUM,PORCINE 5,000 UNIT/ML 1 ML VIAL SQ SCH ×2 (08:45→15:54)
--- NOTE | 2017-10-09 11:07 | P.CNPUL ---
History of Present Illness Consult date: 10/09/17 Chief complaint: Acute unresponsiveness History of present illness: This is an 86-year-old female patient, known history of hypertension and hyperlipidemia who was in the state of health who was brought into the emergency department unresponsive. The patient arrived to the emergency department yesterday completely unresponsive with agonal breathing. Apparently she was being bagged by an Ambu bag on the way by EMS. Immediately patient was intubated and placed on mechanical ventilator. She was withdrawing only to painful stimulation. The withdrawal was better seen on the right side compared to the left. He was worked in point bilaterally 1 mm on the left and 2 mm on the right. She had a downward gaze. No seizure activity. Babinski was positive on the left. The patient had no seizure activity. The patient did not have any cardiac arrhythmias pH remained hemodynamically stable. No 7 atrial fibrillation. No drug abuse. No fall or trauma to the head. This was rather acute events. Immediately CAT scan of the brain was done and showed no evidence of any acute intracranial hemorrhage or midline shift. The ventricular sulci were prominent and there was diffuse cerebral atrophy. The CAT scan of the cervical spine showed dextro convex scoliosis and evidence of multilevel spurring and disc space narrowing from C3-C4 and C5-C6. There was also multilevel degenerative changes involving the cervical spine. There was no evidence of any fracture. A CT of the head was also done that showed no evidence of any significant stenosis in the common or internal carotid arteries bilaterally. 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 Note that the presentation was acute. A stroke alert was called and the patient was not found to be a candidate for thrombolytics This morning the patient is being seen in the intensive care unit. She is withdrawing to painful stimulation more so on the right compared to the left. Motor function is diminished on the left. There is possible but scan of the left. Pupils are the same. She is on a mechanical ventilator with an FiO2 of 50% and a PEEP of 5 and total volume of 500 with a rate of 16 and the patient's blood gases showed a pH of 7.4 with a pCO2 of 40 and pO2 113 pH chest x-ray shows no acute abnormalities other than some cardiomegaly and small left-sided pleural effusion and ET tube is in a good location. The patient is hemodynamically stable. Systolic blood pressures around 124 and the highest being in the 160 range. All of the blood work is within normal limits. Urine drug screen is within normal limits. No reported drug overdose. Neurology consultation is been requested. Review of Systems ROS unobtainable: due to mental status Past Medical History Past Medical History: Hyperlipidemia, Hypertension Additional Past Medical History / Comment(s): HAD POSITIVE GUAC TEST, HX OF POLYPS History of Any Multi-Drug Resistant Organisms: None Reported Past Surgical History: Cholecystectomy, Joint Replacement Additional Past Surgical History / Comment(s): left knee Past Anesthesia/Blood Transfusion Reactions: No Reported Reaction Past Psychological History: No Psychological Hx Reported Smoking Status: Never smoker Past Alcohol Use History: None Reported Past Drug Use History: None Reported - Past Family History Mother Family Medical History: Cancer Additional Family Medical History / Comment(s): COLON, LUNG Brother(s) Family Medical History: Cancer Additional Family Medical History / Comment(s): X2 BROTHERS Medications and Allergies Home Medications Medication Instructions Recorded Confirmed Type Fenofibrate [Tricor] 54 mg PO HS 03/24/14 10/08/17 History Losartan Potassium [Cozaar] 100 mg PO QAM 03/24/14 10/08/17 History amLODIPine [Norvasc] 10 mg PO QAM 03/24/14 10/08/17 History Atorvastatin [Lipitor] 80 mg PO HS 05/01/16 10/08/17 History Allergies Allergy/AdvReac Type Severity Reaction Status Date / Time amoxicillin Allergy Rash/Hives Verified 11/22/16 09:19 neomycin Allergy PER Verified 11/22/16 09:19 ALLERGY TESTING adhesive tape AdvReac RED SKIN, Verified 11/22/16 09:39 Physical Exam Vitals: Vital Signs Temp Pulse Resp BP Pulse Ox 10/09/17 07:00 68 18 124/63 100 10/09/17 06:30 70 18 119/58 100 10/09/17 06:00 68 18 114/59 99 10/09/17 05:30 70 18 125/58 99 10/09/17 05:00 70 18 105/59 99 10/09/17 04:30 72 18 167/67 100 10/09/17 04:00 97.9 F 67 18 104/55 99 10/09/17 03:30 67 18 154/64 99 07/15/18 03:00 67 19 156/68 99 10/09/17 02:30 64 18 121/62 98 10/09/17 02:00 66 18 131/62 99 10/09/17 01:30 69 18 130/66 99 10/09/17 01:00 62 18 111/63 99 10/09/17 00:30 63 18 125/60 99 10/09/17 00:00 97.7 F 69 18 127/68 98 10/08/17 23:30 63 18 115/64 99 10/08/17 23:04 64 18 117/60 98 10/08/17 23:00 63 18 117/60 98 10/08/17 22:30 64 18 102/61 98 10/08/17 22:00 71 18 119/61 98 10/08/17 21:30 66 18 112/64 99 10/08/17 21:00 96.9 F L 70 18 162/70 98 10/08/17 20:05 97.6 F 72 18 159/80 98 10/08/17 19:05 97.5 F L 80 18 168/72 98 10/08/17 18:50 81 18 172/83 99 10/08/17 18:38 76 18 172/78 100 10/08/17 18:25 73 18 155/72 100 10/08/17 18:10 76 18 197/84 100 10/08/17 17:55 76 18 180/77 100 10/08/17 17:51 72 18 204/85 100 10/08/17 17:38 73 18 195/84 99 10/08/17 17:23 70 18 186/80 99 10/08/17 17:07 67 18 186/80 99 10/08/17 16:48 89 18 196/82 100 10/08/17 16:45 98.1 F 98 12 226/98 98 Intake and Output 10/08/17 10/09/17 10/09/17 22:59 06:59 14:59 Intake Total 125 1000 125 Output Total 1137 386 40 Balance -1012 614 85 Intake: Intake, IV Titration 125 1000 125 Amount Sodium Chloride 0.9% 1, 125 1000 125 000 ml @ 125 mls/hr IV . Q8H [facility] Rx#:[id number] Output: Gastric Drainage 100 Urine 1037 386 40 Other: Voiding Method Indwelling Catheter Indwelling Catheter Weight 92.669 kg 88.3 kg Gen. appearance intubated, comfortable a mechanical ventilator. Nonacute distress Head exam was generally normal. There was no scleral icterus or corneal arcus. Mucous membranes were moist. Neck was supple and without jugular venous distension, thyromegaly, or carotid bruits. Carotids were easily palpable bilaterally. There was no adenopathy. Patient has an orogastric and orotracheal tube in place Lungs were clear to auscultation and percussion, and with normal diaphragmatic excursion. No wheezes or rales were noted. Cardiac exam revealed the PMI to be normally situated and sized. The rhythm was regular and no extrasystoles were noted during several minutes of auscultation. The first and second heart sounds were normal and physiologic splitting of the second heart sound was noted. There were no murmurs, rubs, clicks, or gallops. Abdominal exam revealed normal bowel sounds. The abdomen was soft, non-tender, and without masses, organomegaly, or appreciable enlargement of the abdominal aorta. Examination of the extremities revealed easily palpable radial, femoral and pedal pulses. There was no cyanosis, clubbing or edema. Examination of the skin revealed no evidence of significant rashes, suspicious appearing nevi or other concerning lesions. Neurologically the patient withdraws only to painful stimulation and a motor function seems to be more active on the right compared to the left. At times she may be posturing however I'm not clear with that. She has a past Babinski in the left lower extremity. DTRs are symmetrical +1 in all 4 extremities. No hyperreflexia. No clonus. Pupils around 1 mm on the left and 2 mm on the right. She has a downward gaze. No facial asymmetry. Weak cough and weak gag. Results - Laboratory Findings CBC and BMP: 10/09/17 03:51 10/09/17 03:51 ABG ABG pH 7.41 (7.35-7.45) 10/09/17 05:18 ABG pCO2 40 mmHg (35-45) 10/09/17 05:18 ABG pO2 113 mmHg (83-108) H 10/09/17 05:18 ABG O2 Saturation 98.5 % (94-97) H 10/09/17 05:18 PT/INR, D-dimer PT 9.7 sec (9.0-12.0) 10/08/17 16:40 INR 1.0 (<1.2) 10/08/17 16:40 D-Dimer 1.51 mg/L FEU (<0.60) H 10/08/17 16:40 Abnormal lab findings: Abnormal Labs 10/08/17 10/08/17 10/08/17 16:40 16:40 18:23 WBC Neutrophils # Lymphocytes # D-Dimer 1.51 H ABG pO2 241 H ABG HCO3 26 H ABG Total CO2 27 H ABG O2 Saturation 99.7 H BUN 35 H Glucose 124 H POC Glucose (mg/dL) Ur Leukocyte Esterase Urine WBC Urine WBC Clumps Urine Bacteria Urine Mucus 10/08/17 10/09/17 10/09/17 20:47 00:20 03:51 WBC 11.3 H Neutrophils # 9.2 H Lymphocytes # 0.9 L D-Dimer ABG pO2 ABG HCO3 ABG Total CO2 ABG O2 Saturation BUN Glucose POC Glucose (mg/dL) 128 H Ur Leukocyte Esterase Small H Urine WBC 7 H Urine WBC Clumps Rare H Urine Bacteria Rare H Urine Mucus Rare H 10/09/17 10/09/17 03:51 05:18 WBC Neutrophils # Lymphocytes # D-Dimer ABG pO2 113 H ABG HCO3 ABG Total CO2 26 H ABG O2 Saturation 98.5 H BUN 24 H Glucose 113 H POC Glucose (mg/dL) Ur Leukocyte Esterase Urine WBC Urine WBC Clumps Urine Bacteria Urine Mucus - Diagnostic Findings Chest x-ray: image reviewed Assessment and Plan Plan: Assessment 1 acute unresponsiveness 2 acute CVA suspected although the CAT scan of the head and CT angios of the head was negative and the time of admission. Although taken presentation is suggestive of an acute CVA probably of a brainstem 3 acute history failure secondary to above and the patient was intubated for airway protection as the patient had agonal breathing at a time of admission 4 hypertension 5 hyperlipidemia Plan Neurochecks every on hour. Neurology consultation. Repeat CAT scan of the brain within 24 hours. EEG. Aspirin 325 mg by mouth daily. Heparin subcu for DVT prophylaxis. Obtain an echocardiogram. Continue vent support. Monitor the blood gas. Monitor hemodynamics. IV Protonix for GI prophylaxis. Condition is critical. We'll continue to follow. Family was updated on her condition and they are very much aware.
--- NOTE | 2017-10-09 12:58 | P.HPIM ---
History of Present Illness H&P Date: 10/09/17 Chief Complaint: Shortness of breath and unresponsiveness Patient is a 85-year-old female with a known history of hypertension and hyperlipidemia was brought to the hospital with rapid breathing and unresponsiveness. Apparently patient was cooking at home and suddenly became unresponsive and fell on the floor. found her and I'll EMS. By the time EMS came in patient was pretty rapidly and was having agonal respirations while in the ER patient was also unresponsive. Patient was intubated emergently in the ER. Currently patient is still intubated now. No bladder or bowel incontinence noted. No seizure-like activity. Computed tomography scan of the head and neck showed no acute fracture or dislocation. Scoliosis and multiple degenerative changes as noted. No acute intracranial hemorrhage or midline shift is noted. There is mild to moderate diffuse cerebral atrophy and chronic small ischemic changes noted. CT angiogram of the neck showed no significant stenosis in comment or internal carotid arteries bilaterally. Chest x-ray today showed new was ET tube satisfactory position. Cardiomegaly and chronic parenchymal changes without definite 2 suspicious acute infiltrate. Currently patient is on mechanical ventilator assist control. No significant abnormalities noted in the laboratory data. UDS is negative. Neurology and pulmonary was consulted. Review of Systems Review of systems could not be obtained from the patient Past Medical History Past Medical History: Hyperlipidemia, Hypertension Additional Past Medical History / Comment(s): HAD POSITIVE GUAC TEST, HX OF POLYPS History of Any Multi-Drug Resistant Organisms: None Reported Past Surgical History: Cholecystectomy, Joint Replacement Additional Past Surgical History / Comment(s): left knee Past Anesthesia/Blood Transfusion Reactions: No Reported Reaction Past Psychological History: No Psychological Hx Reported Smoking Status: Never smoker Past Alcohol Use History: None Reported Past Drug Use History: None Reported - Past Family History Mother Family Medical History: Cancer Additional Family Medical History / Comment(s): COLON, LUNG Brother(s) Family Medical History: Cancer Additional Family Medical History / Comment(s): X2 BROTHERS Medications and Allergies Home Medications Medication Instructions Recorded Confirmed Type Fenofibrate [Tricor] 54 mg PO HS 03/24/14 10/08/17 History Losartan Potassium [Cozaar] 100 mg PO QAM 03/24/14 10/08/17 History amLODIPine [Norvasc] 10 mg PO QAM 03/24/14 10/08/17 History Atorvastatin [Lipitor] 80 mg PO HS 02/04/17 07/14/18 History Allergies Allergy/AdvReac Type Severity Reaction Status Date / Time amoxicillin Allergy Rash/Hives Verified 11/22/16 09:19 neomycin Allergy PER Verified 11/22/16 09:19 ALLERGY TESTING adhesive tape AdvReac RED SKIN, Verified 11/22/16 09:39 Physical Exam Vitals: Vital Signs Temp Pulse Resp BP Pulse Ox 10/09/17 07:00 68 18 124/63 100 10/09/17 06:30 70 18 119/58 100 10/09/17 06:00 68 18 114/59 99 10/09/17 05:30 70 18 125/58 99 10/09/17 05:00 70 18 105/59 99 10/09/17 04:30 72 18 167/67 100 10/09/17 04:00 97.9 F 67 18 104/55 99 10/09/17 03:30 67 18 154/64 99 10/09/17 03:00 67 19 156/68 99 10/09/17 02:30 64 18 121/62 98 10/09/17 02:00 66 18 131/62 99 10/09/17 01:30 69 18 130/66 99 10/09/17 01:00 62 18 111/63 99 10/09/17 00:30 63 18 125/60 99 10/09/17 00:00 97.7 F 69 18 127/68 98 10/08/17 23:30 63 18 115/64 99 10/08/17 23:04 64 18 117/60 98 10/08/17 23:00 63 18 117/60 98 10/08/17 22:30 64 18 102/61 98 10/08/17 22:00 71 18 119/61 98 10/08/17 21:30 66 18 112/64 99 10/08/17 21:00 96.9 F L 70 18 162/70 98 10/08/17 20:05 97.6 F 72 18 159/80 98 10/08/17 19:05 97.5 F L 80 18 168/72 98 10/08/17 18:50 81 18 172/83 99 10/08/17 18:38 76 18 172/78 100 10/08/17 18:25 73 18 155/72 100 10/08/17 18:10 76 18 197/84 100 10/08/17 17:55 76 18 180/77 100 10/08/17 17:51 72 18 204/85 100 10/08/17 17:38 73 18 195/84 99 10/08/17 17:23 70 18 186/80 99 10/08/17 17:07 67 18 186/80 99 10/08/17 16:48 89 18 196/82 100 10/08/17 16:45 98.1 F 98 12 226/98 98 Intake and Output 10/08/17 10/09/17 10/09/17 22:59 06:59 14:59 Intake Total 125 1000 125 Output Total 1137 386 40 Balance -1012 614 85 Intake: Intake, IV Titration 125 1000 125 Amount Sodium Chloride 0.9% 1, 125 1000 125 000 ml @ 125 mls/hr IV . Q8H [facility] Rx#:[id number] Output: Gastric Drainage 100 Urine 1037 386 40 Other: Voiding Method Indwelling Catheter Indwelling Catheter Weight 92.669 kg 88.3 kg PHYSICAL EXAMINATION: Patient is lying in the bed comfortably, no acute distress, patient is currently sedated and intubated. HEENT: Normocephalic. Neck is supple. Pupils pinpoint and not reactive. Nostrils clear. Oral cavity is moist. Ears reveal no drainage. Neck reveals no JVD, carotid bruits, or thyromegaly. CHEST EXAMINATION: Trachea is central. Symmetrical expansion. Lung chapman clear to auscultation and percussion. CARDIAC: Normal S1, S2 with no gallops. No murmurs ABDOMEN: Soft. Bowel sounds normal. No organomegaly. No abdominal bruits. Extremities: reveal no edema. No clubbing or cyanosis Neurologically sedated and intubated. Left-sided weakness noted Skin: No rash or skin lesions. Psychiatric: Could not be assessed Musculoskeletal: No joint swelling or deformity. Results CBC & Chem 7: 10/09/17 03:51 10/09/17 03:51 Labs: Abnormal Lab Results - Last 24 Hours (Table) 10/08/17 10/08/17 10/08/17 Range/Units 16:40 16:40 18:23 WBC (3.8-10.6) k/uL Neutrophils # (1.3-7.7) k/uL Lymphocytes # (1.0-4.8) k/uL D-Dimer 1.51 H (<0.60) mg/L FEU ABG pO2 241 H (83-108) mmHg ABG HCO3 26 H (21-25) mmol/L ABG Total CO2 27 H (19-24) mmol/L ABG O2 Saturation 99.7 H (94-97) % BUN 35 H (7-17) mg/dL Glucose 124 H (74-99) mg/dL POC Glucose (mg/dL) (75-99) mg/dL Ur Leukocyte Esterase (Negative) Urine WBC (0-5) /hpf Urine WBC Clumps (None) /hpf Urine Bacteria (None) /hpf Urine Mucus (None) /hpf 10/08/17 10/09/17 10/09/17 Range/Units 20:47 00:20 03:51 WBC 11.3 H (3.8-10.6) k/uL Neutrophils # 9.2 H (1.3-7.7) k/uL Lymphocytes # 0.9 L (1.0-4.8) k/uL D-Dimer (<0.60) mg/L FEU ABG pO2 (83-108) mmHg ABG HCO3 (21-25) mmol/L ABG Total CO2 (19-24) mmol/L ABG O2 Saturation (94-97) % BUN (7-17) mg/dL Glucose (74-99) mg/dL POC Glucose (mg/dL) 128 H (75-99) mg/dL Ur Leukocyte Esterase Small H (Negative) Urine WBC 7 H (0-5) /hpf Urine WBC Clumps Rare H (None) /hpf Urine Bacteria Rare H (None) /hpf Urine Mucus Rare H (None) /hpf 10/09/17 10/09/17 Range/Units 03:51 05:18 WBC (3.8-10.6) k/uL Neutrophils # (1.3-7.7) k/uL Lymphocytes # (1.0-4.8) k/uL D-Dimer (<0.60) mg/L FEU ABG pO2 113 H (83-108) mmHg ABG HCO3 (21-25) mmol/L ABG Total CO2 26 H (19-24) mmol/L ABG O2 Saturation 98.5 H (94-97) % BUN 24 H (7-17) mg/dL Glucose 113 H (74-99) mg/dL POC Glucose (mg/dL) (75-99) mg/dL Ur Leukocyte Esterase (Negative) Urine WBC (0-5) /hpf Urine WBC Clumps (None) /hpf Urine Bacteria (None) /hpf Urine Mucus (None) /hpf Thrombosis Risk Factor Assmnt - DVT/VTE Prophylaxis DVT/VTE Prophylaxis: Pharmacologic Prophylaxis ordered Assessment and Plan Assessment: Acute respiratory failure. Currently on mechanical ventilator. Acute unresponsiveness with agonal breathing on admission. Possible CVA Hypertension Hyperlipidemia Obesity with BMI 34.5 DVT prophylaxis Plan: Patient be continued on aspirin 325 mg daily. Neurology and pulmonary was consulted. Patient is currently in the medical intensive care unit. Continue with the dual prophylaxis and stroke workup including CT head, CT angiogram of the neck was done. Repeat CT is being planned. Otherwise continue the current management and prognosis is guarded. As per the family, Patient does not wish any aggressive measures. Time with Patient: Greater than 30
[2017-10-09] MEDS ORDERED: DEXAMETHASONE SOD PHOSPHATE 10 MG/ML 1 ML VIAL IV STA (18:46)
--- NOTE | 2017-10-09 18:46 | CT ---
EXAMINATION TYPE: CT brain wo con DATE OF EXAM: 10/09/2017 COMPARISON: CT brain 10/08/2017 HISTORY: Non responsive, vented CT DLP: 795 mGycm Automated exposure control for dose reduction was used. Helical acquisition through the brain FINDINGS: Dense right posterior cerebral artery on the right is present, there is loss of some beckett-white diffe rentiation along the distribution of the right posterior cerebral artery, low-attenuation is present in the posterior right temporal, occipital region on the right, no mass effect or hemorrhage. Focus o f low attenuation also present in the right cerebellar hemisphere could represent small infarct. Thal ami and midbrain at the level of the cerebral peduncles also show some low attenuation, MRI may be of benefit for extent of cerebrovascular insult. IMPRESSION: FINDINGS COMPATIBLE WITH SUBACUTE INFARCT RIGHT POSTERIOR CEREBRAL ARTERY, ADDITIONAL FINDINGS LADARIUS CRIBED.
--- NOTE | 2017-10-09 18:53 | P.CNNES ---
History of Present Illness Consult date: 10/09/17 Reason for Consult: Patient intubated and unresponsive with left sided weakness. History of Present Illness: This patient is a 86-year-old right-handed white female who apparently was in her usual state of health until yesterday. Previous to this she was doing quite well and was functioning at a very high level according to the ICU nursing staff. The patient apparently was brought into the emergency room yesterday after she was found unresponsive at home. Apparently the patient was cooking at the home and suddenly the heard a banging on the floor and when he arrived he found her collapsed and unresponsive on the kitchen floor. EMS was called to the home and when they arrived they found her having agonal respiration. She was immediately intubated and transferred to the emergency room at [facility] where she was evaluated by Dr. Jane in the ER. She was sent immediately for a computed tomography scan of the brain without contrast which revealed no acute intracranial hemorrhage or midline shift. There was mild to moderate diffuse cerebral atrophy noted. CT of the cervical spine revealed no acute fracture or dislocation. Scoliosis and multiple level degenerative changes were noted. The patient was intubated and transferred to the intensive care unit. She is not on any sedation at this time but remains very much obtunded and comatose. The patient has no previous history of cardiac disease. She does not have any evidence of atrial fibrillation. She underwent a CTA angiogram of the head and neck in the emergency room yesterday and the results indicated no significant stenosis of the internal carotid arteries bilaterally. 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 This size appeared stable compared to the previous CAT scan. The patient was evaluated in the ER by Dr. Jane. A code stroke was initiated in the ER by Dr. Jane but she was not a candidate for TPA. She was not a candidate for TPA as a CT scans were negative and CT angiogram negative except for the stable finding of the cerebral aneurysm. Exact etiology of her syncopal episode was to be further determined. She was admitted to the intensive care unit for further monitoring. Neurology was consulted today by Dr. Britton. She is shown no significant change in her neurological status. She is noted today to have less movement on her left side as compared to the right side. She also show some signs of posturing with her right hand. Spontaneously she moves her right upper extremity but not her left. The patient remains intubated in the intensive care unit. Neurology is now been consulted for further evaluation and recommendations. Review of Systems ROS unobtainable: due to endotracheal tube Constitutional: Denies chills, Denies fever Eyes: denies blurred vision, denies pain Ears, nose, mouth and throat: Denies headache, Denies sore throat Cardiovascular: Denies chest pain, Denies shortness of breath Respiratory: Denies cough Gastrointestinal: Denies abdominal pain, Denies diarrhea, Denies nausea, Denies vomiting Genitourinary: Denies dysuria, Denies hematuria Musculoskeletal: Denies myalgias Integumentary: Denies pruritus, Denies rash Neurological: Reports aphasia, Reports change in mentation, Reports motor disturbance, Reports transient paralysis, Denies numbness, Denies weakness Psychiatric: Denies anxiety, Denies depression Endocrine: Denies fatigue, Denies weight change Past Medical History Past Medical History: Hyperlipidemia, Hypertension Additional Past Medical History / Comment(s): HAD POSITIVE GUAC TEST, HX OF POLYPS History of Any Multi-Drug Resistant Organisms: None Reported Past Surgical History: Cholecystectomy, Joint Replacement Additional Past Surgical History / Comment(s): left knee Past Anesthesia/Blood Transfusion Reactions: No Reported Reaction Past Psychological History: No Psychological Hx Reported Smoking Status: Never smoker Past Alcohol Use History: None Reported Past Drug Use History: None Reported - Past Family History Mother Family Medical History: Cancer Additional Family Medical History / Comment(s): COLON, LUNG Brother(s) Family Medical History: Cancer Additional Family Medical History / Comment(s): X2 BROTHERS Medications and Allergies Home Medications Medication Instructions Recorded Confirmed Type Fenofibrate [Tricor] 54 mg PO HS 03/24/14 10/08/17 History Losartan Potassium [Cozaar] 100 mg PO QAM 03/24/14 10/08/17 History amLODIPine [Norvasc] 10 mg PO QAM 03/24/14 10/08/17 History Atorvastatin [Lipitor] 80 mg PO HS 05/01/16 10/08/17 History Allergies Allergy/AdvReac Type Severity Reaction Status Date / Time amoxicillin Allergy Rash/Hives Verified 11/22/16 09:19 neomycin Allergy PER Verified 11/22/16 09:19 ALLERGY TESTING adhesive tape AdvReac RED SKIN, Verified 11/22/16 09:39 Physical Examination - Vital Signs Vital Signs: Vital Signs Temp Pulse Resp BP Pulse Ox 10/09/17 14:00 67 17 155/73 99 10/09/17 13:00 69 18 132/63 99 10/09/17 12:00 99 F 67 18 140/68 99 10/09/17 11:00 99.3 F 70 18 161/70 99 10/09/17 10:00 68 18 165/67 99 10/09/17 09:00 73 17 159/68 99 10/09/17 08:00 99 F 67 18 116/60 99 10/09/17 07:00 68 18 124/63 100 10/09/17 06:30 70 18 119/58 100 10/09/17 06:00 68 18 114/59 99 10/09/17 05:30 70 18 125/58 99 10/09/17 05:00 70 18 105/59 99 10/09/17 04:30 72 18 167/67 100 10/09/17 04:00 97.9 F 67 18 104/55 99 10/09/17 03:30 67 18 154/64 99 10/09/17 03:00 67 19 156/68 99 10/09/17 02:30 64 18 121/62 98 10/09/17 02:00 66 18 131/62 99 10/09/17 01:30 69 18 130/66 99 10/09/17 01:00 62 18 111/63 99 10/09/17 00:30 63 18 125/60 99 10/09/17 00:00 97.7 F 69 18 127/68 98 10/08/17 23:30 63 18 115/64 99 10/08/17 23:04 64 18 117/60 98 10/08/17 23:00 63 18 117/60 98 10/08/17 22:30 64 18 102/61 98 10/08/17 22:00 71 18 119/61 98 10/08/17 21:30 66 18 112/64 99 10/08/17 21:00 96.9 F L 70 18 162/70 98 10/08/17 20:05 97.6 F 72 18 159/80 98 10/08/17 19:05 97.5 F L 80 18 168/72 98 10/08/17 18:50 81 18 172/83 99 10/08/17 18:38 76 18 172/78 100 10/08/17 18:25 73 18 155/72 100 10/08/17 18:10 76 18 197/84 100 10/08/17 17:55 76 18 180/77 100 10/08/17 17:51 72 18 204/85 100 10/08/17 17:38 73 18 195/84 99 10/08/17 17:23 70 18 186/80 99 10/08/17 17:07 67 18 186/80 99 10/08/17 16:48 89 18 196/82 100 10/08/17 16:45 98.1 F 98 12 226/98 98 Intake and Output 10/09/17 10/09/17 10/09/17 06:59 14:59 22:59 Intake Total 1000 125 Output Total 386 495 Balance 614 -370 Intake: Intake, IV Titration 1000 125 Amount Sodium Chloride 0.9% 1, 1000 125 000 ml @ 125 mls/hr IV . [facility] Rx#:[id number] Output: Urine 386 495 Other: Voiding Method Indwelling Catheter Indwelling Catheter Weight 88.3 kg - Constitutional General appearance: average body habitus, cooperative - EENT EENT: PERRL, mucous membranes moist - Respiratory Respiratory: lungs clear, normal breath sounds - Cardiovascular Cardiovascular: regular rate, normal S1, normal S2 Extremities: no peripheral edema bilaterally - Gastrointestinal Gastrointestinal: normoactive bowel sounds - Integumentary Integumentary: normal - Neurologic Cranial nerve examination: PERRL, EOMI, VFF, V1/V2/V3 grossly intact, face symmetric, tongue midline, intact gag reflex, intact corneal reflex, normal palatal elevation Speech examination: intact Sensorimotor examination: intact Motor examination - right side: 3/5: biceps, triceps, wrist flexion, wrist extension, inspector plug seam, hip flexors, knee extensors, dorsiflexion, toe extension (EHL) , plantarflexion Motor examination - left side: 1/5: biceps, triceps, wrist flexion, wrist extension, inspector plug seam, hip flexors, knee extensors, dorsiflexion, toe extension (EHL) , plantarflexion Detailed sensory examination: intact Reflex and gait examination: intact Reflexes: 1+: ankle, bicep, knee, tricep - Musculoskeletal Musculoskeletal: no pain - Psychiatric Psychiatric: mood/affect appropriate (Patient remains comatose in the intensive care unit.) Results - Laboratory Findings CBC and BMP: 10/09/17 03:51 10/09/17 03:51 Abnormal Lab Findings: Abnormal Labs 10/08/17 10/08/17 10/08/17 16:40 16:40 18:23 WBC Neutrophils # Lymphocytes # D-Dimer 1.51 H ABG pO2 241 H ABG HCO3 26 H ABG Total CO2 27 H ABG O2 Saturation 99.7 H BUN 35 H Glucose 124 H POC Glucose (mg/dL) Ur Leukocyte Esterase Urine WBC Urine WBC Clumps Urine Bacteria Urine Mucus 10/08/17 10/09/17 10/09/17 20:47 00:20 03:51 WBC 11.3 H Neutrophils # 9.2 H Lymphocytes # 0.9 L D-Dimer ABG pO2 ABG HCO3 ABG Total CO2 ABG O2 Saturation BUN Glucose POC Glucose (mg/dL) 128 H Ur Leukocyte Esterase Small H Urine WBC 7 H Urine WBC Clumps Rare H Urine Bacteria Rare H Urine Mucus Rare H 10/09/17 10/09/17 03:51 05:18 WBC Neutrophils # Lymphocytes # D-Dimer ABG pO2 113 H ABG HCO3 ABG Total CO2 26 H ABG O2 Saturation 98.5 H BUN 24 H Glucose 113 H POC Glucose (mg/dL) Ur Leukocyte Esterase Urine WBC Urine WBC Clumps Urine Bacteria Urine Mucus Assessment and Plan (1) Acute right arterial ischemic stroke, MCA (middle cerebral artery) Current Visit: Yes Status: Acute Code(s): I63.511 - CEREB INFRC D/T UNSP OCCLS OR STENOS OF RIGHT MID CEREB ART SNOMED Code(s): 367419175 (2) Acute ischemic VBA brainstem stroke Current Visit: Yes Status: Acute Code(s): I63.219 - CEREB INFRC DUE TO UNSP OCCLS OR STENOSIS OF UNSP VERTEB ART; I63.22 - CEREB INFRC DUE TO UNSP OCCLS OR STENOSIS OF BASILAR ARTERY SNOMED Code(s): 971855868 (3) Respiratory failure Current Visit: Yes Status: Acute Code(s): J96.90 - RESPIRATORY FAILURE, UNSP , UNSP W HYPOXIA OR HYPERCAPNIA SNOMED Code(s): 158665502 (4) Syncope and collapse Current Visit: Yes Status: Acute Code(s): R55 - SYNCOPE AND COLLAPSE SNOMED Code(s): 280999037 Plan: This patient is a 86-year-old right-handed white female who was in her usual state of health yesterday when she apparently collapsed while cooking in the kitchen. heard a loud sound and a thump on the floor and when he arrived in the kitchen she was unresponsive on the kitchen floor. EMS was called to the scene and she was immediately intubated and transferred to the emergency room at [facility] ER for further evaluation. She was seen in the ER by Dr. Jane who assessed her and felt she was not a candidate for TPA and she was sent for computed tomography scan of the brain and CTA angiogram of the head and neck. CT of the brain was reported negative for any acute changes. CTA angiogram of the head and neck revealed evidence of an aneurysm involving the anterior circulation measuring 10 x 8 mm saccular aneurysm which appeared stable compared to a computed tomography scan done in 2015. This aneurysm was felt to be an incidental finding on CTA angiogram of the head and neck. There was no evidence of acute cerebral hemorrhage. The patient was intubated and transferred to the intensive care unit. She was examined in the ICU today and remains comatose. She does withdraw to pain mostly on her right side as compared to the left side. She has spontaneous movements only on her right side. She is noted to have some posturing movement of the right arm at times. There is evidence of a possible Babinski response on the left as well. This patient likely has suffered an acute right hemispheric stroke with possible brainstem involvement. She does have some eye gaze disparities as well as left-sided hemiparesis suggesting possibility of brainstem ischemia. Dr. Britton had a discussion with the family today and apparently they would like to continue supportive care but do not wish to have heroic measures performed for her at this time. The patient is scheduled to have a repeat computed tomography scan of the brain today which will be reviewed. Further recommendations will be given pending this follow-up CAT scan result. Her overall prognosis at this time remains very guarded. We will obtain a routine EEG tomorrow for further evaluation of her cognitive state in regards to recent right hemispheric stroke. Her overall prognosis at this time remains very guarded. No family members were present at the time of this consultation at bedside to discuss her neurological status. We will plan to discuss these findings tomorrow with the family at bedside. Once again her overall prognosis at this time remains very guarded. We will continue close neurological follow-up of this patient in the intensive care unit. Time with Patient: Greater than 30
[2017-10-10] MEDS: DEXAMETHASONE SOD PHOSPHATE 4 MG/ML 1 ML VIAL IV SCH ×4 (00:10→17:44)
[2017-10-10] MEDS: HEPARIN SODIUM,PORCINE 5,000 UNIT/ML 1 ML VIAL SQ SCH ×3 (00:10→15:42)
[2017-10-10] MEDS: SODIUM CHLORIDE 0.9% 1,000 ML IV SCH ×3 (03:00→20:58)
[2017-10-10 05:08] LABS: Basophils % (A) 0 %; Eosinophils % (A) 0 %; HCT 35.1 % (34.0-46.0); HGB 11.3 gm/dL (11.4-16.0); Lymphocytes # (A) 0.4 k/uL (1.0-4.8); Lymphocytes % (A) 4 %; MCH 26.9 pg (25.0-35.0); MCHC 32.1 g/dL (31.0-37.0); MCV 83.7 fL (80.0-100.0); Mean Platelet Volume 7.4; Monocytes # (A) 0.2 k/uL (0-1.0); Monocytes % (A) 3 %; Neutrophils # (A) 8.3 k/uL (1.3-7.7); Neutrophils % (A) 92 %; Platelet Count 316 k/uL (150-450); RBC 4.19 m/uL (3.80-5.40); RDW 15.3 % (11.5-15.5)
[2017-10-10 05:26] LABS: Anion Gap 4 mmol/L; Blood Urea Nitrogen 16 mg/dL (7-17); Calcium 7.8 mg/dL (8.4-10.2); Carbon Dioxide 21 mmol/L (22-30); Chloride 112 mmol/L (98-107); Glucose 154 mg/dL (74-99); Phosphorus 2.6 mg/dL (2.5-4.5); Potassium 3.7 mmol/L (3.5-5.1); Sodium 137 mmol/L (137-145)
[2017-10-10 05:52] LABS: ABG PCO2 37 mmHg (35-45); ABG PH 7.41 (7.35-7.45); ABG PO2 105 mmHg (83-108)
[2017-10-10 05:53] LABS: ABG Base Excess -1.1 mmol/L; ABG HCO3 24 mmol/L (21-25); ABG TCO2 25 mmol/L (19-24)
[2017-10-10] MEDS ORDERED: Potassium Replacement Protocol 1 EACH MISC MISCELLANE PRN (06:08)
[2017-10-10] MEDS ORDERED: POTASSIUM BICARBONATE/CIT AC 20 MEQ TABLET.EFF NG-TUBE SCH (07:00)
[2017-10-10 07:32] LABS: Glucose,Whole Blood 120 mg/dL (75-99)
--- NOTE | 2017-10-10 07:36 | XR ---
EXAMINATION TYPE: XR chest 1V portable DATE OF EXAM: 10/10/2017 Comparison: 10/09/2017 Clinical History: 86 year-old female tube placement Findings: ET tube tip is approximately 2.3 cm from the lorenzo. NG tube courses below the diaphragm. The heart i s moderately enlarged. Diffuse vascular prominence persists. Slight increased patchy right basilar de nsity. No significant pleural effusion seen on the frontal view. Impression: Continued moderate cardiomegaly. Possible mild pulmonary vascular congestion. Slight increased patchy right basilar atelectasis or early infiltrate. No jazmin pulmonary edema.
[2017-10-10] MEDS: PANTOPRAZOLE 40 MG/10 ML VIAL IV SCH (08:06)
[2017-10-10] MEDS: ASPIRIN 325 MG TAB PO SCH (08:07)
[2017-10-10] MEDS: CHLORHEXIDINE GLUCONATE 15 ML CUP MUCOUS MEM SCH ×2 (08:07→20:58)
--- NOTE | 2017-10-10 11:16 | P.PN ---
Subjective Progress Note Date: 10/10/17 Principal diagnosis: Acute hypoxic respiratory failure secondary to CVA. This is an 86-year-old female patient, known history of hypertension and hyperlipidemia who was in the state of health who was brought into the emergency department unresponsive. The patient arrived to the emergency department yesterday completely unresponsive with agonal breathing. Apparently she was being bagged by an Ambu bag on the way by EMS. Immediately patient was intubated and placed on mechanical ventilator. She was withdrawing only to painful stimulation. The withdrawal was better seen on the right side compared to the left. He was worked in point bilaterally 1 mm on the left and 2 mm on the right. She had a downward gaze. No seizure activity. Babinski was positive on the left. The patient had no seizure activity. The patient did not have any cardiac arrhythmias pH remained hemodynamically stable. No 7 atrial fibrillation. No drug abuse. No fall or trauma to the head. This was rather acute events. Immediately CAT scan of the brain was done and showed no evidence of any acute intracranial hemorrhage or midline shift. The ventricular sulci were prominent and there was diffuse cerebral atrophy. The CAT scan of the cervical spine showed dextro convex scoliosis and evidence of multilevel spurring and disc space narrowing from C3-C4 and C5-C6. There was also multilevel degenerative changes involving the cervical spine. There was no evidence of any fracture. A CT of the head was also done that showed no evidence of any significant stenosis in the common or internal carotid arteries bilaterally. 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 Note that the presentation was acute. A stroke alert was called and the patient was not found to be a candidate for thrombolytics This morning the patient is being seen in the intensive care unit. She is withdrawing to painful stimulation more so on the right compared to the left. Motor function is diminished on the left. There is possible but scan of the left. Pupils are the same. She is on a mechanical ventilator with an FiO2 of 50% and a PEEP of 5 and total volume of 500 with a rate of 16 and the patient's blood gases showed a pH of 7.4 with a pCO2 of 40 and pO2 113 pH chest x-ray shows no acute abnormalities other than some cardiomegaly and small left-sided pleural effusion and ET tube is in a good location. The patient is hemodynamically stable. Systolic blood pressures around 124 and the highest being in the 160 range. All of the blood work is within normal limits. Urine drug screen is within normal limits. No reported drug overdose. Neurology consultation is been requested. Patient was seen on 10/10/2017, remains on mechanical ventilation, and ventilator settings are tidal volume of 400, assist control rate of 18, FiO2 of 45%, and PEEP of 5. ABG showed a pO2 of 105 pCO2 of 37 pH of 7.41. Chest x- ray showed cardiomegaly, some pulmonary vascular congestion, and patchy right basilar atelectasis. Patient remains unresponsive, but she withdraws to painful stimuli. Seems to have significant left-sided hemiplegia. Labs were reviewed CBC is relatively normal, basic metabolic profile is relatively normal. Neurology consultation was reviewed, and condition was discussed with family at bedside. Objective - Vital Signs Vital signs: Vital Signs Temp 99 F 10/10/17 08:00 Pulse 68 10/10/17 11:00 Resp 23 10/10/17 11:00 BP 147/76 10/10/17 11:00 Pulse Ox 97 10/10/17 11:03 Intake & Output 10/09/17 10/10/17 10/10/17 18:59 06:59 18:59 Intake Total 125 1375 125 Output Total 655 662 345 Balance -530 713 -220 Weight 90.5 kg Intake: IV 1375 125 Sodium Chloride 0.9% 1, 1375 125 000 ml @ 125 mls/hr IV . Q8[facility] Rx#:[id number] Intake, IV Titration 125 Amount Sodium Chloride 0.9% 1, 125 000 ml @ 125 mls/hr IV . [facility] Rx#:[id number] Output: Urine 655 662 345 Other: Voiding Method Indwelling Catheter Indwelling Catheter Indwelling Catheter - Exam Physical Exam: Revealed an 86-year-old female, intubated, comatose, withdrawing to deep painful stimuli, in no distress. Head: Atraumatic, normocephalic. Endotracheal tube and orogastric tube are intact. HEENT:[Neck is supple.] [No neck masses.] [No thyromegaly.] [No JVD.] No icterus. Moist mucous membranes noted. Chest: [Clear throughout, no crackles, no rhonchi, no wheezes.] Symmetrical expansion, no chest wall tenderness. Cardiac Exam: [Normal S1 and S2, no S3 gallop, no murmur.] Abdomen: [Soft, nontender, no megaly, no rebound, no guarding, normal bowel sounds.] Extremities: [No clubbing, no edema, no cyanosis.] Neurological Exam: Unresponsive, and there is significant left-sided weakness noted. Withdraws to deep painful stimuli only. No movement noted on the left side however. Deep tendon reflexes are 1+ in all 4 extremities. No hyperreflexia. Downward gaze is noted. Lymphatics: No lymphadenopathy. Psychiatric: Cannot be addressed. Skin: No rashes. - Labs CBC & Chem 7: 10/10/17 04:23 10/10/17 04:23 Labs: Abnormal Lab Results - Last 24 Hours (Table) 10/08/17 10/10/17 10/10/17 Range/Units 16:41 04:23 04:23 Hgb 11.3 L (11.4-16.0) gm/dL Neutrophils # 8.3 H (1.3-7.7) k/uL Lymphocytes # 0.4 L (1.0-4.8) k/uL ABG Total CO2 (19-24) mmol/L Chloride 112 H (98-107) mmol/L Carbon Dioxide 21 L (22-30) mmol/L Creatinine 0.50 L (0.52-1.04) mg/dL Glucose 154 H (74-99) mg/dL POC Glucose (mg/dL) 120 H (75-99) mg/dL Calcium 7.8 L (8.4-10.2) mg/dL 10/10/17 Range/Units 05:45 Hgb (11.4-16.0) gm/dL Neutrophils # (1.3-7.7) k/uL Lymphocytes # (1.0-4.8) k/uL ABG Total CO2 25 H (19-24) mmol/L Chloride (98-107) mmol/L Carbon Dioxide (22-30) mmol/L Creatinine (0.52-1.04) mg/dL Glucose (74-99) mg/dL POC Glucose (mg/dL) (75-99) mg/dL Calcium (8.4-10.2) mg/dL Microbiology - Last 24 Hours (Table) 10/09/17 00:01 Gram Stain - Preliminary Sputum Sputum Culture - Preliminary 10/09/17 00:20 Urine Culture - Preliminary Urine,Catheterized Assessment and Plan Assessment: Impression: 1 acute right sided arterial ischemic stroke most likely involving the middle cerebral artery. 2 acute hypoxic respiratory failure requiring intubation and mechanical ventilation, patient could not protect her airways upon presentation. Patient was also noted to have agonal breathing on presentation. 3 acute syncope and collapse secondary to CVA. 4 multiple comorbidities including benign essential hypertension and hyperlipidemia. Recommendation: Continue ventilatory support, ventilator settings were addressed , continue neuro checks, consider repeat CT of the brain, continue aspirin, heparin subcu, nutritional support to be addressed today, patient will be started on enteral feedings. Discussed her condition with family at bedside, and decision would have to be made whether to consider comfort care measures, and that will be based on the neurologist recommendation and prognostic picture as per neurology. Family is agreeable to consider comfort care measures if felt to have poor quality of life by neurology. Critical care time is 40 minutes, discussed her condition with daughter and son at bedside. Time with Patient: Greater than 30
[2017-10-10 12:04] LABS: Glucose,Whole Blood 161 mg/dL (75-99)
--- NOTE | 2017-10-10 15:11 | ECHOF ---
Referral Reason:cva MEASUREMENTS -------- HEIGHT: 160.0 cm WEIGHT: 90.3 kg BP: 155/74 IVSd: 1.3 cm (0.6 - 1.1) LVIDd: 4.4 cm (3.9 - 5.3) LVPWd: 1.5 cm (0.6 - 1.1) IVSs: 1.8 cm LVIDs: 2.0 cm LVPWs: 1.9 cm Ao Diam: 2.6 cm (2.0 - 3.7) LA Diam: 3.3 cm (2.7 - 3.8) AV Cusp: 1.2 cm (1.5 - 2.6) EPSS: 0.5 cm MV E Linden: 1.31 m/s MV DecT: 147 ms MV A Linden: 1.71 m/s MV E/A Ratio: 0.77 RAP: 5.00 mmHg RVSP: 9.86 mmHg MV EF SLOPE: 64.97 mm/s (70 - 150) MV EXCURSION: 15.97 mm (> 18.000) FINDINGS -------- Sinus rhythm. This was a technically good study. The left ventricular size is normal. There is mild concentric left ventricular hypertrophy. Overa ll left ventricular systolic function is normal with, an EF between 55 - 60 %. The right ventricle is normal in size and function. The left atrium is normal in size. The right atrium is normal in size. Aortic valve is trileaflet and is mildly thickened. The mitral valve leaflets are mildly thickened. Mild mitral regurgitation is present. Mild tricuspid regurgitation present. The right ventricular systolic pressure, as measured by Doppl er, is 9.86mmHg. Pulmonic valve appears structurally normal. The aortic root size is normal. Echo free space indicative of a pericardial fat pad. CONCLUSIONS -------- 1. Sinus rhythm. 2. This was a technically good study. 3. The left ventricular size is normal. 4. There is mild concentric left ventricular hypertrophy. 5. Overall left ventricular systolic function is normal with, an EF between 55 - 60 %. 6. The right ventricle is normal in size and function. 7. The left atrium is normal in size. 8. The right atrium is normal in size. 9. Aortic valve is trileaflet and is mildly thickened. 10. The mitral valve leaflets are mildly thickened. 11. Mild mitral regurgitation is present. 12. Mild tricuspid regurgitation present. 13. The right ventricular systolic pressure, as measured by Doppler, is 9.86mmHg. 14. Pulmonic valve appears structurally normal. 15. The aortic root size is normal. 16. Echo free space indicative of a pericardial fat pad. CHEM[employer] TANK WORKER: Cindy Jimenez RDCS
--- NOTE | 2017-10-10 18:08 | P.PN ---
Subjective 81-year-old female admitted for hemiparesis extensive involving the anti-less side of the body and patient was intubated for protection of airway patient is off sedation response appeared to pain. Occasionally bleeding or the ventilator , EEG was done the results of which are pending patient appears to have ischemia involving the right cerebral hemisphere with the brain stem involvement. Patient has absent corneal reflex does have gag reflex is breathing over the ventilator is occasionally moving the right side of the body. Babinski is upgoing on the left side normal on the right side. Objective - Vital Signs Vital signs: Vital Signs Temp 99.1 F 10/10/17 16:00 Pulse 79 10/10/17 17:00 Resp 22 10/10/17 17:00 BP 168/74 10/10/17 17:00 Pulse Ox 98 10/10/17 17:00 Intake & Output 10/09/17 10/10/17 10/10/17 18:59 06:59 18:59 Intake Total 125 1375 125 Output Total 655 662 820 Balance -530 713 -695 Weight 90.5 kg Intake: IV 1375 125 Sodium Chloride 0.9% 1, 1375 125 000 ml @ 125 mls/hr IV . Q[facility] Rx#:[id number] Intake, IV Titration 125 Amount Sodium Chloride 0.9% 1, 125 000 ml @ 125 mls/hr IV . [facility] Rx#:[id number] Output: Urine 655 662 820 Other: Voiding Method Indwelling Catheter Indwelling Catheter Indwelling Catheter - Exam PHYSICAL EXAMINATION: GENERAL: Intubated off sedation the spotting to painful stimuli gag reflex as mentioned above bleeding or the vent as mentioned above HEENT: Absent corneal and conjunctival reflexes. Sluggish pupillary reflexes No scleral icterus. No conjunctival pallor. Patient is intubated CARDIOVASCULAR: S1 and S2 present. No murmurs, rubs, or gallops. PULMONARY: Chest is clear to auscultation, no wheezing or crackles. ABDOMEN: Soft, nontender, nondistended, normoactive bowel sounds. No palpable organomegaly. MUSCULOSKELETAL: No joint swelling or deformity. EXTREMITIES: No cyanosis, clubbing, or pedal edema. NEUROLOGICAL: Flaccid on the left side is moving right side occasionally SKIN: No rashes. - Labs CBC & Chem 7: 10/10/17 04:23 10/10/17 11:25 Labs: Abnormal Lab Results - Last 24 Hours (Table) 10/08/17 10/10/17 10/10/17 Range/Units 16:41 04:23 04:23 Hgb 11.3 L (11.4-16.0) gm/dL Neutrophils # 8.3 H (1.3-7.7) k/uL Lymphocytes # 0.4 L (1.0-4.8) k/uL ABG Total CO2 (19-24) mmol/L Chloride 112 H (98-107) mmol/L Carbon Dioxide 21 L (22-30) mmol/L Creatinine 0.50 L (0.52-1.04) mg/dL Glucose 154 H (74-99) mg/dL POC Glucose (mg/dL) 120 H (75-99) mg/dL Calcium 7.8 L (8.4-10.2) mg/dL 10/10/17 10/10/17 Range/Units 05:45 12:02 Hgb (11.4-16.0) gm/dL Neutrophils # (1.3-7.7) k/uL Lymphocytes # (1.0-4.8) k/uL ABG Total CO2 25 H (19-24) mmol/L Chloride (98-107) mmol/L Carbon Dioxide (22-30) mmol/L Creatinine (0.52-1.04) mg/dL Glucose (74-99) mg/dL POC Glucose (mg/dL) 161 H (75-99) mg/dL Calcium (8.4-10.2) mg/dL Microbiology - Last 24 Hours (Table) 10/09/17 00:20 Urine Culture - Final Urine,Catheterized Assessment and Plan Plan: -Ischemic stroke involving the left side of the body and possible right middle several artery territory and right cerebral cortex with involvement of brain stem. -Acute hypoxic respiratory failure secondary to stroke and patient is intubated for airway protection. EEG is pending prognostication As per neurology. Patient probably will be able to be extubated in a day or 2 if she is awake enough and more responsive but may end up having some chronic and permanent disability echocardiogram did not show any significant abnormality. Patient is presently DO NOT RESUSCITATE, and family doesn't want us to be aggressive considering her age -Hypertension -Hyperlipidemia
[2017-10-10 18:25] LABS: Glucose,Whole Blood 155 mg/dL (75-99)
[2017-10-10 18:43] LABS: Hemoglobin A1C 6.3 % (4.0-6.0)
--- NOTE | 2017-10-10 21:22 | EEG ---
ELECTROENCEPHALOGRAM REPORT DATE OF EE10/10/2017. REFERRING PHYSICIAN: Dr. Yeager. INTERPRETING PHYSICIAN: Dr. Lashae King ELECTROENCEPHALOGRAPHIC EXAMINATION REPORT: INDICATION FOR EXAMINATION: This patient is a 86-year-old female, who suffered acute right hemispheric stroke. Patient remains unresponsive on the ventilator. AGE: 86. EEG FINDINGS: A routine 21 channel awake digital EEG recording was accomplished utilizing the 10-20 international system with bipolar and referential montages. The background activity in the most alert resting state consists of a low to medium amplitude, poorly developed and poorly sustained 5-6 Hz activity over the posterior head regions. This posterior rhythm attenuates to eye opening. There is a small amount of low amplitude 18-20 Hz beta activity seen maximally over the anterior head regions. Hyperventilation was not performed. Photic stimulation at flash frequencies of 2-30 Hz produced a minimal occipital driving response. No epileptiform discharges were seen. IMPRESSION: This EEG gives evidence of a severe widespread diffuse disturbance in cerebral function. The EEG failed to reveal any focal, lateralized, or epileptiform abnormalities. If clinically indicated a followup EEG is recommended. Clinical correlation is recommended. MMODL / IJN: [id number] /
[2017-10-11] MEDS: DEXAMETHASONE SOD PHOSPHATE 4 MG/ML 1 ML VIAL IV SCH ×3 (00:14→12:49)
[2017-10-11] MEDS: HEPARIN SODIUM,PORCINE 5,000 UNIT/ML 1 ML VIAL SQ SCH ×3 (00:14→22:40)
[2017-10-11 00:23] LABS: Glucose,Whole Blood 153 mg/dL (75-99)
--- NOTE | 2017-10-11 00:51 | P.PN ---
Subjective Progress Note Date: 10/10/17 This patient is a 86-year-old female who was admitted to Hospital after she was found collapsed and unresponsive at home by her . She was immediately brought into the emergency room where she was evaluated and intubated due to acute hypoxic respiratory failure. She underwent computed tomography scan of the brain initially which failed to reveal any acute changes. 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 No acute stroke was seen on the initial CAT scan. Repeat computed tomography scan of the brain done yesterday revealed evidence of acute to subacute infarction involving the right posterior cerebral artery as well as low attenuation in the right midbrain region. No evidence of acute hemorrhage was noted. Patient underwent routine EEG today which was reviewed and reveals diffuse slowing with a background of 5-6 Hz. With no evidence of any epileptiform discharges. The results of the CAT scan and EEG were reviewed today with the patient's sister who was at bedside in the ICU. Niece was also present. They will conveyed this information to the remaining family members. Family is now considering whether to consider comfort care measures for this patient given her elderly age and complex findings following this recent stroke. We have recommended a follow-up computed tomography scan of the brain to be done tomorrow for further assessment. This may be helpful in determining long-term prognosis for the patient as well. We will be happy to discuss these findings in detail with her tomorrow as well as to review this recent EEG findings. The patient is remaining intubated in the intensive care unit and does move mostly her right side to pain. She has very little movement on her left side with hemiparesis. As noted case was discussed today with the patient's sister who is at bedside and she was updated on her current neurological status and findings. We will continue close neurological follow-up for this patient. Overall prognosis at this time remains very guarded. Objective - Vital Signs Vital signs: Vital Signs Temp 98.8 F 10/10/17 20:00 Pulse 68 10/10/17 20:00 Resp 14 10/10/17 20:00 BP 173/79 10/10/17 20:00 Pulse Ox 95 10/10/17 20:00 Intake & Output 10/10/17 10/10/17 10/11/17 06:59 18:59 06:59 Intake Total 1375 375 125 Output Total 662 945 50 Balance 713 -570 75 Weight 90.5 kg Intake: IV 1375 375 125 Sodium Chloride 0.9% 1, 1375 375 125 000 ml @ 125 mls/hr IV . Q8H [facility] Rx#:[id number] Output: Urine 662 945 50 Other: Voiding Method Indwelling Catheter Indwelling Catheter Indwelling Catheter - Exam Physical examination: PHYSICAL EXAMINATION: Patient is intubated on the ventilator in the intensive care unit. She is not moving much of her left side on examination today. VITAL SIGNS: Blood pressure is [173/79]. Heart rate is [68]. Respiration is [14] . Temperature is [98.8]. HEENT: Head is atraumatic, neck is supple, there were no carotid bruits. CHEST: Lungs are clear to auscultation and percussion. CARDIAC: S1, S2 normal rate and rhythm. There is no murmur. ABDOMEN: Soft and nontender. Bowel sounds are present. EXTREMITIES: There is no pedal edema. Peripheral pulses are present. Neurological examination: Patient remains intubated in the intensive care unit. She has left-sided hemiplegia. She is moving her right side spontaneously. There is been no significant improvement in her overall neurological status since admission to the ICU. - Labs CBC & Chem 7: 10/10/17 04:23 10/10/17 11:25 Labs: Abnormal Lab Results - Last 24 Hours (Table) 10/08/17 10/10/17 10/10/17 Range/Units 16:41 04:23 04:23 Hgb 11.3 L (11.4-16.0) gm/dL Neutrophils # 8.3 H (1.3-7.7) k/uL Lymphocytes # 0.4 L (1.0-4.8) k/uL ABG Total CO2 (19-24) mmol/L Chloride 112 H (98-107) mmol/L Carbon Dioxide 21 L (22-30) mmol/L Creatinine 0.50 L (0.52-1.04) mg/dL Glucose 154 H (74-99) mg/dL POC Glucose (mg/dL) 120 H (75-99) mg/dL Calcium 7.8 L (8.4-10.2) mg/dL 10/10/17 10/10/17 10/10/17 Range/Units 05:45 12:02 18:24 Hgb (11.4-16.0) gm/dL Neutrophils # (1.3-7.7) k/uL Lymphocytes # (1.0-4.8) k/uL ABG Total CO2 25 H (19-24) mmol/L Chloride (98-107) mmol/L Carbon Dioxide (22-30) mmol/L Creatinine (0.52-1.04) mg/dL Glucose (74-99) mg/dL POC Glucose (mg/dL) 161 H 155 H (75-99) mg/dL Calcium (8.4-10.2) mg/dL Microbiology - Last 24 Hours (Table) 10/09/17 00:20 Urine Culture - Final Urine,Catheterized Assessment and Plan (1) Acute right arterial ischemic stroke, MCA (middle cerebral artery) Current Visit: Yes Status: Acute Code(s): I63.511 - CEREB INFRC D/T UNSP OCCLS OR STENOS OF RIGHT MID CEREB ART SNOMED Code(s): 936076551 (2) Acute ischemic VBA brainstem stroke Current Visit: Yes Status: Acute Code(s): I63.219 - CEREB INFRC DUE TO UNSP OCCLS OR STENOSIS OF UNSP VERTEB ART; I63.22 - CEREB INFRC DUE TO UNSP OCCLS OR STENOSIS OF BASILAR ARTERY SNOMED Code(s): 850093959 (3) Respiratory failure Current Visit: Yes Status: Acute Code(s): J96.90 - RESPIRATORY FAILURE, UNSP , UNSP W HYPOXIA OR HYPERCAPNIA SNOMED Code(s): 115137688 (4) Syncope and collapse Current Visit: Yes Status: Acute Code(s): R55 - SYNCOPE AND COLLAPSE SNOMED Code(s): 410379383 Plan: This patient is a 86-year-old female who was seen today in the intensive care unit following recent right hemispheric stroke. Patient remains intubated on the ventilator and has left-sided hemiplegia. We have recommended a follow-up computed tomography scan of the brain to be done tomorrow for further evaluation and help with long-term prognosis. The family has had discussion with pulmonary medicine in regards to possible comfort care measures for this patient. She was able to complete EEG today which was reviewed and does reveal severe slowing with no epileptiform discharges. Case was discussed today with the patient's sister who was at bedside in the ICU. She was updated on all of her current neurological findings and test results in detail. As noted her EEG does reveal severe slowing. We will have a follow-up computed tomography scan of the brain done tomorrow for comparison to her last scan. We will plan to discuss all of these findings in detail with the patient's tomorrow to help family make a decision in long-term care for this patient. Her overall prognosis at this time remains very guarded.
[2017-10-11 04:46] LABS: Basophils % (A) 0 %; Eosinophils % (A) 0 %; HCT 36.5 % (34.0-46.0); HGB 11.9 gm/dL (11.4-16.0); Lymphocytes # (A) 0.6 k/uL (1.0-4.8); Lymphocytes % (A) 4 %; MCH 27.4 pg (25.0-35.0); MCHC 32.7 g/dL (31.0-37.0); Mean Platelet Volume 7.2; Monocytes # (A) 0.6 k/uL (0-1.0); Monocytes % (A) 5 %; Neutrophils # (A) 11.5 k/uL (1.3-7.7); Neutrophils % (A) 90 %; Platelet Count 365 k/uL (150-450); RBC 4.34 m/uL (3.80-5.40); RDW 15.1 % (11.5-15.5); WBC 12.7 k/uL (3.8-10.6)
[2017-10-11 04:52] LABS: Anion Gap 7 mmol/L; Blood Urea Nitrogen 18 mg/dL (7-17); Calcium 8.9 mg/dL (8.4-10.2); Carbon Dioxide 22 mmol/L (22-30); Chloride 107 mmol/L (98-107); Glucose 160 mg/dL (74-99); Magnesium 2.1 mg/dL (1.6-2.3); Phosphorus 2.5 mg/dL (2.5-4.5); Sodium 136 mmol/L (137-145)
[2017-10-11 05:38] LABS: Glucose,Whole Blood 158 mg/dL (75-99)
[2017-10-11] MEDS: SODIUM CHLORIDE 0.9% 1,000 ML IV SCH ×3 (06:20→20:17)
--- NOTE | 2017-10-11 08:04 | XR ---
EXAMINATION TYPE: XR chest 1V portable DATE OF EXAM: 10/11/2017 CLINICAL HISTORY: Difficulty breathing progress study. TECHNIQUE: Single AP portable upright view of the chest is obtained. COMPARISON: Chest x-ray from one day earlier and older studies. FINDINGS: There is is stable positioning of endotracheal and orogastric tubes. Persistent cardiomegaly with ectatic and atherosclerotic aorta and central vascular congestion. Patch y left basilar opacity is now present. Improved aeration right lung base is seen. IMPRESSION: Cardiomegaly with perhaps mild central vascular congestion redemonstrated and new left ba silar atelectasis and/or infiltrate. Interval resolution of right basilar atelectasis and/or infiltra te.
[2017-10-11 08:33] LABS: ABG PCO2 36 mmHg (35-45); ABG PH 7.41 (7.35-7.45); ABG PO2 83 mmHg (83-108)
[2017-10-11 08:34] LABS: ABG HCO3 22 mmol/L (21-25)
[2017-10-11] MEDS: ASPIRIN 325 MG TAB PO SCH (08:47)
[2017-10-11] MEDS: CHLORHEXIDINE GLUCONATE 15 ML CUP MUCOUS MEM SCH (08:48)
[2017-10-11] MEDS: PANTOPRAZOLE 40 MG/10 ML VIAL IV SCH (08:48)
[2017-10-11 09:45] VITALS: BMI 35.6
--- NOTE | 2017-10-11 11:31 | CT ---
EXAMINATION TYPE: CT brain wo con DATE OF EXAM: 10/11/2017 COMPARISON: 10/09/2017 HISTORY: 86 year-old female acute right hemispheric stroke, Follow up scan TECHNIQUE: Examination was done in axial plane without intravenous contrast. Coronal and sagittal r econstructions performed. CT DLP: 1264.1 mGycm Automated exposure control for dose reduction was used. FINDINGS: There is evolving changes with increasing hypodensity in the right GENETIC ENGINEER territory. Persistent sulcal e ffacement but no midline shift or herniation. New hypodensity within the left GENETIC ENGINEER territory as well suggesting subacute infarct. Notably, there are hyperdense right greater than left posterior cerebral arteries noted. No evidence for acute intracranial hemorrhage. Mild generalized cerebral atrophy. Suspect old right cerebellar hemisphere infarcts. 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 IMPRESSION: 1. Evolving changes of the known subacute right GENETIC ENGINEER territory infarct with greater degree of hypodens ity. 2. Newly apparent smaller acute to subacute left GENETIC ENGINEER territory infarct. 3. Right greater than left bilateral hyperdense contract driver suggesting intra-arterial clot. 4. 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 5. No midline shift, herniation, or hydrocephalus. No acute intracranial hemorrhage. Impression points #1, 2, 3, and 5 called to nurse Fernandez on 6ICU at approximately 11:20 AM.
[2017-10-11 11:55] LABS: Glucose,Whole Blood 160 mg/dL (75-99)
--- NOTE | 2017-10-11 13:35 | P.PN ---
Subjective Progress Note Date: 10/11/17 Principal diagnosis: Acute hypoxic respiratory failure secondary to CVA. This is an 86-year-old female patient, known history of hypertension and hyperlipidemia who was in the state of health who was brought into the emergency department unresponsive. The patient arrived to the emergency department yesterday completely unresponsive with agonal breathing. Apparently she was being bagged by an Ambu bag on the way by EMS. Immediately patient was intubated and placed on mechanical ventilator. She was withdrawing only to painful stimulation. The withdrawal was better seen on the right side compared to the left. He was worked in point bilaterally 1 mm on the left and 2 mm on the right. She had a downward gaze. No seizure activity. Babinski was positive on the left. The patient had no seizure activity. The patient did not have any cardiac arrhythmias pH remained hemodynamically stable. No 7 atrial fibrillation. No drug abuse. No fall or trauma to the head. This was rather acute events. Immediately CAT scan of the brain was done and showed no evidence of any acute intracranial hemorrhage or midline shift. The ventricular sulci were prominent and there was diffuse cerebral atrophy. The CAT scan of the cervical spine showed dextro convex scoliosis and evidence of multilevel spurring and disc space narrowing from C3-C4 and C5-C6. There was also multilevel degenerative changes involving the cervical spine. There was no evidence of any fracture. A CT of the head was also done that showed no evidence of any significant stenosis in the common or internal carotid arteries bilaterally. 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 Note that the presentation was acute. A stroke alert was called and the patient was not found to be a candidate for thrombolytics This morning the patient is being seen in the intensive care unit. She is withdrawing to painful stimulation more so on the right compared to the left. Motor function is diminished on the left. There is possible but scan of the left. Pupils are the same. She is on a mechanical ventilator with an FiO2 of 50% and a PEEP of 5 and total volume of 500 with a rate of 16 and the patient's blood gases showed a pH of 7.4 with a pCO2 of 40 and pO2 113 pH chest x-ray shows no acute abnormalities other than some cardiomegaly and small left-sided pleural effusion and ET tube is in a good location. The patient is hemodynamically stable. Systolic blood pressures around 124 and the highest being in the 160 range. All of the blood work is within normal limits. Urine drug screen is within normal limits. No reported drug overdose. Neurology consultation is been requested. Patient was seen on 10/10/2017, remains on mechanical ventilation, and ventilator settings are tidal volume of 400, assist control rate of 18, FiO2 of 45%, and PEEP of 5. ABG showed a pO2 of 105 pCO2 of 37 pH of 7.41. Chest x- ray showed cardiomegaly, some pulmonary vascular congestion, and patchy right basilar atelectasis. Patient remains unresponsive, but she withdraws to painful stimuli. Seems to have significant left-sided hemiplegia. Labs were reviewed CBC is relatively normal, basic metabolic profile is relatively normal. Neurology consultation was reviewed, and condition was discussed with family at bedside. On 10/11/2017, patient remains on mechanical ventilation, her ventilator settings are tidal volume of 400 assist control rate of 18 FiO2 of 45% and PEEP of 5. ABG showed a pO2 of 83 pCO2 of 36 pH of 7.41. CBC and basic metabolic profile are normal. Repeat CT of the brain showed evolving changes of the known subacute right posterior cerebral territory artifact with a greater degree of hypodensity. There is also some apparent smaller acute to subacute left DIRECTOR DRUG SAFETY territory infarct. There is also suggestion of intra-arterial clot. Chest x-ray showed cardiomegaly, and minimal congestion with left basilar atelectasis. Clinically the patient remains unresponsive, she is moving the right side, but no movement whatsoever on the left side. Patient withdraws only to deep painful stimuli on the right side. Objective - Vital Signs Vital signs: Vital Signs Temp 99.1 F 10/11/17 12:00 Pulse 49 L 10/11/17 12:30 Resp 17 10/11/17 12:30 BP 140/62 10/11/17 12:30 Pulse Ox 97 10/11/17 12:30 Intake & Output 10/10/17 10/11/17 10/11/17 18:59 06:59 18:59 Intake Total 375 1375 750 Output Total 945 830 472 Balance -570 545 278 Weight 91.1 kg 91.1 kg Intake: IV 375 1375 750 Sodium Chloride 0.9% 1, 375 1375 750 000 ml @ 125 mls/hr IV . [facility] Rx#:[id number] Output: Urine 945 830 472 Other: Voiding Method Indwelling Catheter Indwelling Catheter Indwelling Catheter - Exam Physical Exam: Revealed an 86-year-old female, intubated, comatose, withdrawing to deep painful stimuli, in no distress. Head: Atraumatic, normocephalic. Endotracheal tube and orogastric tube are intact. HEENT:[Neck is supple.] [No neck masses.] [No thyromegaly.] [No JVD.] No icterus. Moist mucous membranes noted. Chest: [Clear throughout, no crackles, no rhonchi, no wheezes.] Symmetrical expansion, no chest wall tenderness. Cardiac Exam: [Normal S1 and S2, no S3 gallop, no murmur.] Abdomen: [Soft, nontender, no megaly, no rebound, no guarding, normal bowel sounds.] Extremities: [No clubbing, no edema, no cyanosis.] Neurological Exam: Unresponsive, and there is significant left-sided weakness noted. Withdraws to deep painful stimuli only. No movement noted on the left side however. Deep tendon reflexes are 1+ in all 4 extremities. No hyperreflexia. Downward gaze is noted. Lymphatics: No lymphadenopathy. Psychiatric: Cannot be addressed. Skin: No rashes. - Labs CBC & Chem 7: 10/11/17 04:03 10/11/17 04:03 Labs: Abnormal Lab Results - Last 24 Hours (Table) 10/10/17 10/10/17 10/11/17 Range/Units 04:23 18:24 00:21 WBC (3.8-10.6) k/uL Neutrophils # (1.3-7.7) k/uL Lymphocytes # (1.0-4.8) k/uL Sodium (137-145) mmol/L BUN (7-17) mg/dL Creatinine (0.52-1.04) mg/dL Glucose (74-99) mg/dL POC Glucose (mg/dL) 155 H 153 H (75-99) mg/dL Hemoglobin A1c 6.3 H (4.0-6.0) % 10/11/17 10/11/17 10/11/17 Range/Units 04:03 04:03 05:35 WBC 12.7 H (3.8-10.6) k/uL Neutrophils # 11.5 H (1.3-7.7) k/uL Lymphocytes # 0.6 L (1.0-4.8) k/uL Sodium 136 L (137-145) mmol/L BUN 18 H (7-17) mg/dL Creatinine 0.50 L (0.52-1.04) mg/dL Glucose 160 H (74-99) mg/dL POC Glucose (mg/dL) 158 H (75-99) mg/dL Hemoglobin A1c (4.0-6.0) % 10/11/17 Range/Units 11:54 WBC (3.8-10.6) k/uL Neutrophils # (1.3-7.7) k/uL Lymphocytes # (1.0-4.8) k/uL Sodium (137-145) mmol/L BUN (7-17) mg/dL Creatinine (0.52-1.04) mg/dL Glucose (74-99) mg/dL POC Glucose (mg/dL) 160 H (75-99) mg/dL Hemoglobin A1c (4.0-6.0) % Microbiology - Last 24 Hours (Table) 10/09/17 00:01 Gram Stain - Final Sputum Sputum Culture - Final 10/09/17 00:20 Urine Culture - Final Urine,Catheterized Assessment and Plan Assessment: Impression: 1 acute right sided arterial ischemic stroke involving the territory of the right DIRECTOR DRUG SAFETY and left DIRECTOR DRUG SAFETY. As noted on the CT of the brain today. 2 acute hypoxic respiratory failure requiring intubation and mechanical ventilation, patient could not protect her airways upon presentation. Patient was also noted to have agonal breathing on presentation. 3 acute syncope and collapse secondary to CVA. 4 multiple comorbidities including benign essential hypertension and hyperlipidemia. Recommendation: Continue ventilatory support, ventilator settings were addressed , continue neuro checks, discussed briefly her condition with family at bedside , awaiting further input from the neurologist, may have to consider comfort care measures if the neurologist agrees, knowing that the patient has a very poor prognosis and poor quality of life. Family seems to be ready for terminal weaning once they are updated from the neurologist about her condition. Critical care time is 40 minutes. Time with Patient: Greater than 30
--- NOTE | 2017-10-11 16:11 | P.PN ---
Subjective 81-year-old female admitted for hemiparesis extensive involving the anti-less side of the body and patient was intubated for protection of airway patient is off sedation response appeared to pain. Occasionally bleeding or the ventilator , EEG was done the results of which are pending patient appears to have ischemia involving the right cerebral hemisphere with the brain stem involvement. Patient has absent corneal reflex does have gag reflex is breathing over the ventilator is occasionally moving the right side of the body. Babinski is upgoing on the left side normal on the right side. 10/11/2017 Patient is responding to pain stimuli patient does have corneal reflexes patient does have brainstem reflexes patient does have gag reflex occasionally breathing over the vent no significant change compared to yesterday. Repeat CAT scan did show extended to stroke involving both posterior cerebral arteries the right as well as left side. Patient has diffuse slowing consistent with diffuse stroke on the EKG Objective - Vital Signs Vital signs: Vital Signs Temp 99.1 F 10/11/17 12:00 Pulse 60 10/11/17 15:30 Resp 21 10/11/17 15:44 BP 147/65 10/11/17 15:30 Pulse Ox 98 10/11/17 15:30 Intake & Output 10/10/17 10/11/17 10/11/17 18:59 06:59 18:59 Intake Total 375 1375 1125 Output Total 945 830 812 Balance -570 545 313 Weight 91.1 kg 91.1 kg Intake: IV 375 1375 1125 Sodium Chloride 0.9% 1, 375 1375 1125 000 ml @ 125 mls/hr IV . Q8H [facility] Rx#:[id number] Output: Urine 945 830 812 Other: Voiding Method Indwelling Catheter Indwelling Catheter Indwelling Catheter - Exam PHYSICAL EXAMINATION: GENERAL: Intubated off sedation the spotting to painful stimuli gag reflex as mentioned above bleeding or the vent as mentioned above HEENT: Absent corneal and conjunctival reflexes. Sluggish pupillary reflexes No scleral icterus. No conjunctival pallor. Patient is intubated CARDIOVASCULAR: S1 and S2 present. No murmurs, rubs, or gallops. PULMONARY: Chest is clear to auscultation, no wheezing or crackles. ABDOMEN: Soft, nontender, nondistended, normoactive bowel sounds. No palpable organomegaly. MUSCULOSKELETAL: No joint swelling or deformity. EXTREMITIES: No cyanosis, clubbing, or pedal edema. NEUROLOGICAL: Flaccid on the left side is moving right side occasionally SKIN: No rashes. - Labs CBC & Chem 7: 10/11/17 04:03 10/11/17 04:03 Labs: Abnormal Lab Results - Last 24 Hours (Table) 10/10/17 10/10/17 10/11/17 Range/Units 04:23 18:24 00:21 WBC (3.8-10.6) k/uL Neutrophils # (1.3-7.7) k/uL Lymphocytes # (1.0-4.8) k/uL Sodium (137-145) mmol/L BUN (7-17) mg/dL Creatinine (0.52-1.04) mg/dL Glucose (74-99) mg/dL POC Glucose (mg/dL) 155 H 153 H (75-99) mg/dL Hemoglobin A1c 6.3 H (4.0-6.0) % 10/11/17 10/11/17 10/11/17 Range/Units 04:03 04:03 05:35 WBC 12.7 H (3.8-10.6) k/uL Neutrophils # 11.5 H (1.3-7.7) k/uL Lymphocytes # 0.6 L (1.0-4.8) k/uL Sodium 136 L (137-145) mmol/L BUN 18 H (7-17) mg/dL Creatinine 0.50 L (0.52-1.04) mg/dL Glucose 160 H (74-99) mg/dL POC Glucose (mg/dL) 158 H (75-99) mg/dL Hemoglobin A1c (4.0-6.0) % 10/11/17 Range/Units 11:54 WBC (3.8-10.6) k/uL Neutrophils # (1.3-7.7) k/uL Lymphocytes # (1.0-4.8) k/uL Sodium (137-145) mmol/L BUN (7-17) mg/dL Creatinine (0.52-1.04) mg/dL Glucose (74-99) mg/dL POC Glucose (mg/dL) 160 H (75-99) mg/dL Hemoglobin A1c (4.0-6.0) % Microbiology - Last 24 Hours (Table) 10/09/17 00:01 Gram Stain - Final Sputum Sputum Culture - Final 10/09/17 00:20 Urine Culture - Final Urine,Catheterized Assessment and Plan Plan: -Ischemic stroke involving the left side of the body and possible right middle several artery territory and right cerebral cortex with involvement of brain stem bilaterally involving both right and left posterior cerebral arteries. Patient is still unable to protect the airway still not awake enough to protect her airway very awaiting prognostication by neurology. Patient has extensive brainstem as of the cerebral cortex involvement from stroke leaving significant morbidity and poor prognosis -Acute hypoxic respiratory failure secondary to stroke and patient is intubated for airway protection. . Patient is presently DO NOT RESUSCITATE, and family doesn't want us to be aggressive considering her age -Hypertension -Hyperlipidemia
[2017-10-11] MEDS ORDERED: ATROPINE OPHTH SOLN 1% 5ML BTL SUBLINGUAL PRN (17:19)
[2017-10-11] MEDS ORDERED: DRY MOUTH SPRAY 44.3 SPRAY/44.3 ML SPRAY MUCOUS MEM PRN (17:19)
[2017-10-11] MEDS ORDERED: SCOPOLAMINE 1.5MG/72HR PATCH TRANSDERM PRN (17:19)
[2017-10-11] MEDS ORDERED: MORPHINE SULFATE 2 MG/ML SYRINGE IV PRN (17:19)
[2017-10-11] MEDS ORDERED: MORPHINE SULFATE (100 MG/2 ML) 100 MG in SODIUM CHLORIDE 0.9% 100 ML IV SCH (17:30)
--- NOTE | 2017-10-11 18:48 | P.PN ---
Subjective Progress Note Date: 10/11/17 This patient is a 86-year-old female who was admitted to Hospital after she was found collapsed and unresponsive at home by her . She was immediately brought into the emergency room where she was evaluated and intubated due to acute hypoxic respiratory failure. She underwent computed tomography scan of the brain initially which failed to reveal any acute changes. 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 No acute stroke was seen on the initial CAT scan. Repeat computed tomography scan of the brain done yesterday revealed evidence of acute to subacute infarction involving the right posterior cerebral artery as well as low attenuation in the right midbrain region. No evidence of acute hemorrhage was noted. Patient underwent routine EEG today which was reviewed and reveals diffuse slowing with a background of 5-6 Hz. With no evidence of any epileptiform discharges. The results of the CAT scan and EEG were reviewed today with the patient's sister who was at bedside in the ICU. Niece was also present. They will conveyed this information to the remaining family members. Family is now considering whether to consider comfort care measures for this patient given her elderly age and complex findings following this recent stroke. We did recommend a follow-up computed tomography scan of the brain to be done today for comparison. This CAT scan was completed today and results indicate evolving changes of known subacute right OYSTER CULTIVATOR infarct with greater degree of hypodensity. New apparent smaller acute to subacute left OYSTER CULTIVATOR infarct is also noted on this CAT scan. There is right greater than left bilateral hyperdense OYSTER CULTIVATOR findings suggesting intra-arterial clot. 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 There was no evidence of midline shift, herniation, or hydrocephalus. No evidence of acute intracranial hemorrhage. We did review all of these findings today in detail with several family members at bedside in the ICU. Clearly there is new findings of left hemispheric infarction now in the left OYSTER CULTIVATOR territory. As noted there continues to be evidence of brainstem and right cerebellar involvement from this recent stroke as well. Neurologically the patient remains intubated and is shown no significant improvement in her condition as compared to yesterday. In fact the CAT scan findings show worsening overall findings of her stroke. We did discuss this with 3 of her sisters at bedside in the ICU. They wanted us to speak to her son Mr. Juancarlos Piedra who is her power of criminal attorney to update him on these CAT scan results and findings. We did contact Mr. Piedra today by phone. We updated him on all of the current findings neurologically as well as radiologically concerning his mother. Family has been leaning towards comfort care measures for this patient given the severity of her recent stroke. Mr. Piedra states he does not wish to proceed with any tracheostomy or PEG tube placement for this patient. He'll discuss with other family members and most likely will like to continue only with comfort care measures for this patient. We've advised him to discuss this further with the energy consultant as well as the ICU nurse today. Overall this patient's prognosis at this time remains very guarded. Objective - Vital Signs Vital signs: Vital Signs Temp 99.1 F 10/11/17 12:00 Pulse 60 10/11/17 15:30 Resp 21 10/11/17 15:44 BP 147/65 10/11/17 15:30 Pulse Ox 98 10/11/17 15:30 Intake & Output 10/10/17 10/11/17 10/11/17 18:59 06:59 18:59 Intake Total 375 1375 1125 Output Total 945 830 812 Balance -570 545 313 Weight 91.1 kg 91.1 kg Intake: IV 375 1375 1125 Sodium Chloride 0.9% 1, 375 1375 1125 000 ml @ 125 mls/hr IV . Q8H [facility] Rx#:[id number] Output: Urine 945 830 812 Other: Voiding Method Indwelling Catheter Indwelling Catheter Indwelling Catheter - Exam Physical examination: PHYSICAL EXAMINATION: Patient is intubated on the ventilator in the intensive care unit. She is not moving much of her left side on examination today. VITAL SIGNS: Blood pressure is [147/65]. Heart rate is [60]. Respiration is [21] . Temperature is [99.1]. HEENT: Head is atraumatic, neck is supple, there were no carotid bruits. CHEST: Lungs are clear to auscultation and percussion. CARDIAC: S1, S2 normal rate and rhythm. There is no murmur. ABDOMEN: Soft and nontender. Bowel sounds are present. EXTREMITIES: There is no pedal edema. Peripheral pulses are present. Neurological examination: Patient remains intubated in the intensive care unit. She has left-sided hemiplegia. She is moving her right side spontaneously. There is been no significant improvement in her overall neurological status since admission to the ICU. Patient does have preservation of corneal response. Gag reflex is absent. She does withdraw to painful stimuli better on the right side as compared to the left side. Deep tendon reflexes are hypoactive. Plantar responses equivocal bilaterally. - Labs CBC & Chem 7: 10/11/17 04:03 10/11/17 04:03 Labs: Abnormal Lab Results - Last 24 Hours (Table) 10/10/17 10/10/17 10/11/17 Range/Units 04:23 18:24 00:21 WBC (3.8-10.6) k/uL Neutrophils # (1.3-7.7) k/uL Lymphocytes # (1.0-4.8) k/uL Sodium (137-145) mmol/L BUN (7-17) mg/dL Creatinine (0.52-1.04) mg/dL Glucose (74-99) mg/dL POC Glucose (mg/dL) 155 H 153 H (75-99) mg/dL Hemoglobin A1c 6.3 H (4.0-6.0) % 10/11/17 10/11/17 10/11/17 Range/Units 04:03 04:03 05:35 WBC 12.7 H (3.8-10.6) k/uL Neutrophils # 11.5 H (1.3-7.7) k/uL Lymphocytes # 0.6 L (1.0-4.8) k/uL Sodium 136 L (137-145) mmol/L BUN 18 H (7-17) mg/dL Creatinine 0.50 L (0.52-1.04) mg/dL Glucose 160 H (74-99) mg/dL POC Glucose (mg/dL) 158 H (75-99) mg/dL Hemoglobin A1c (4.0-6.0) % 10/11/17 Range/Units 11:54 WBC (3.8-10.6) k/uL Neutrophils # (1.3-7.7) k/uL Lymphocytes # (1.0-4.8) k/uL Sodium (137-145) mmol/L BUN (7-17) mg/dL Creatinine (0.52-1.04) mg/dL Glucose (74-99) mg/dL POC Glucose (mg/dL) 160 H (75-99) mg/dL Hemoglobin A1c (4.0-6.0) % Microbiology - Last 24 Hours (Table) 10/09/17 00:01 Gram Stain - Final Sputum Sputum Culture - Final 10/09/17 00:20 Urine Culture - Final Urine,Catheterized Assessment and Plan (1) Acute right arterial ischemic stroke, MCA (middle cerebral artery) Current Visit: Yes Status: Acute Code(s): I63.511 - CEREB INFRC D/T UNSP OCCLS OR STENOS OF RIGHT MID CEREB ART SNOMED Code(s): 957546937 (2) Acute ischemic VBA brainstem stroke Current Visit: Yes Status: Acute Code(s): I63.219 - CEREB INFRC DUE TO UNSP OCCLS OR STENOSIS OF UNSP VERTEB ART; I63.22 - CEREB INFRC DUE TO UNSP OCCLS OR STENOSIS OF BASILAR ARTERY SNOMED Code(s): 545198988 (3) Respiratory failure Current Visit: Yes Status: Acute Code(s): J96.90 - RESPIRATORY FAILURE, UNSP , UNSP W HYPOXIA OR HYPERCAPNIA SNOMED Code(s): 937745819 (4) Syncope and collapse Current Visit: Yes Status: Acute Code(s): R55 - SYNCOPE AND COLLAPSE SNOMED Code(s): 084902431 Plan: This patient is a 86-year-old female who is seen today in the intensive care unit following recent right OYSTER CULTIVATOR stroke. Patient was sent for a follow-up CAT scan of the brain today which reveals progression of her stroke with worsening signs of new areas of infarction. CAT scan today reveals a left OYSTER CULTIVATOR infarct as well as larger size of the right OYSTER CULTIVATOR infarct. There is also evidence of brainstem and right cerebellar infarctions. The patient's neurological status has not shown any improvement. We were able to discuss her neurological findings and radiological findings today with 3 of her sisters at bedside in the ICU. They requested that we also speak with her son Mr. Juancarlos Piedra in regards to these findings. Mr. Piedra is her power of criminal attorney. We were able to contact Mr. Piedra today on the phone in the ICU at 4 PM today. He was updated on all of her neurological test results and her overall neurological findings today and the ICU. He is not wanting to proceed with a tracheostomy or PEG tube placement for this patient. He would like to discuss this further with family members but is planning to consider comfort care measures for this patient in terms of long-term management. This is seems to be very appropriate given the extent of stroke that she has suffered. We will continue to follow her progress very closely in the ICU. We have made the family aware that they can contact us if there is any other questions or concerns that they may have. Her overall prognosis at this time remains very guarded.
[2017-10-12 07:59] VITALS: BP 107/66; PULSE 68; RESP 16; TEMP 97.6
--- NOTE | 2017-10-12 11:33 | P.DS ---
Providers Date of admission: 10/08/17 19:55 Attending physician: Camilo Yeager Consults: 10/08/17 17:37 Consult Physician Stat Consulting Provider: Aleja Britton Consult Reason/Comments: Intensive care management, that management Do you want consulting provider notified?: Already Contacted 10/08/17 19:55 Consult Physician Routine Consulting Provider: Lashae King Consult Reason/Comments: Syncope Do you want consulting provider notified?: Yes Primary care physician: Garth Banda Hospital Course: 81-year-old female admitted for hemiparesis extensive involving the anti-less side of the body and patient was intubated for protection of airway patient is off sedation response appeared to pain. Occasionally bleeding or the ventilator , EEG was done the results of which are pending patient appears to have ischemia involving the right cerebral hemisphere with the brain stem involvement. Patient has absent corneal reflex does have gag reflex is breathing over the ventilator is occasionally moving the right side of the body. Babinski is upgoing on the left side normal on the right side. 10/11/2017 Patient is responding to pain stimuli patient does have corneal reflexes patient does have brainstem reflexes patient does have gag reflex occasionally breathing over the vent no significant change compared to yesterday. Repeat CAT scan did show extended to stroke involving both posterior cerebral arteries the right as well as left side. Patient has diffuse slowing consistent with diffuse stroke on the EKG 10/12/2017 Patient did not have any significant improvement in her neurological status. After discussion with the family patient the was made comfort care and hospice now. Hospice services is evaluating for general inpatient hospice versus outpatient hospice. All the medications were discontinued except for comfort medications. PHYSICAL EXAMINATION: GENERAL: She was extubated appears to be comfortable breathing is stable not arousable HEENT: Absent corneal and conjunctival reflexes. CARDIOVASCULAR: S1 and S2 present. No murmurs, rubs, or gallops. PULMONARY: Chest is clear to auscultation, no wheezing or crackles. ABDOMEN: Soft, nontender, nondistended, normoactive bowel sounds. No palpable organomegaly. MUSCULOSKELETAL: No joint swelling or deformity. EXTREMITIES: No cyanosis, clubbing, or pedal edema. NEUROLOGICAL: Unable to assess SKIN: No rashes. Assessment and Plan Plan: -Ischemic stroke extensive bilateral brainstem involvement without any significant improvement. Patient is hospice as mentioned above. -Acute hypoxic respiratory failure secondary to stroke and patient is intubated for airway protection. . And is extubated and presently hospice -Hypertension -Hyperlipidemia Patient Condition at Discharge: Critical Plan - Discharge Summary New Discharge Prescriptions: No Action amLODIPine [Norvasc] 10 mg PO QAM Losartan Potassium [Cozaar] 100 mg PO QAM Fenofibrate [Tricor] 54 mg PO HS Atorvastatin [Lipitor] 80 mg PO HS Discharge Medication List Fenofibrate [Tricor] 54 mg PO HS 03/24/14 [History] Losartan Potassium [Cozaar] 100 mg PO QAM 03/24/14 [History] amLODIPine [Norvasc] 10 mg PO QAM 03/24/14 [History] Atorvastatin [Lipitor] 80 mg PO HS 05/01/16 [History] Follow up Appointment(s)/Referral(s): Garth Banda MD [Primary Care Provider] - 1-2 days
== END 2017-10-12 11:53 | disposition hospice, inpatient (51) | DRG 64 ==
LOC: EC 16:40 → 6ICU 19:55 → 5MS5E 10-11 19:43 → UNDODISIN 10-12 12:55
PROVIDERS: ADMIT Internal Medicine; ATTEND Internal Medicine
PROC: 5A1945Z Respiratory Ventilation, 24-96 Consecutive Hours (ICD-10-PCS; principal; 2017-10-08)
PROC: 0BH17EZ Insertion of Endotracheal Airway into Trachea, Via Natural or Artificial Opening (ICD-10-PCS; 2017-10-08)
DX: I63.511 Cerebral infarction due to unspecified occlusion or stenosis of right middle cerebral artery (principal); J96.01 Acute respiratory failure with hypoxia; R40.20 Unspecified coma; G81.94 Hemiplegia, unspecified affecting left nondominant side; M41.9 Scoliosis, unspecified; M47.812 Spondylosis without myelopathy or radiculopathy, cervical region; I63.512 Cerebral infarction due to unspecified occlusion or stenosis of left middle cerebral artery; E66.9 Obesity, unspecified; Z68.34 Body mass index [BMI] 34.0-34.9, adult; Z66 Do not resuscitate; E78.5 Hyperlipidemia, unspecified; I11.9 Hypertensive heart disease without heart failure; R40.2431 Glasgow coma scale score 3-8, in the field [EMT or ambulance]; Z79.899 Other long term (current) drug therapy; Z88.0 Allergy status to penicillin
CPT/HCPCS: 31500; 36415; 36600; 70450; 70496; 70498; 71045; 72125; 80048; 80053; 80306; 81001; 81003; 82140; 82550; 82553; 82805; 83036; 83735; 84100; 84132; 84484; 85025; 85379; 85610; 85730; 87070; 87086; 87205; 93005; 93306; 94002; 94003; 95816; 96360; 96361; 99291

== ENCOUNTER 2017-10-12 11:53 | Inpatient (IN) | payer MEDICAID ==
[2017-10-12] MEDS ORDERED: ONDANSETRON 4 MG/2 ML VIAL IVP PRN (12:43)
[2017-10-12] MEDS ORDERED: LORazepam 2 MG/ML INJ IV PRN (12:43)
[2017-10-12] MEDS ORDERED: MORPHINE SULFATE 2 MG/ML SYRINGE IV PRN (12:43)
[2017-10-12] MEDS ORDERED: ACETAMINOPHEN SUPPOSITORY 650 MG SUPP RECTAL PRN (12:43)
[2017-10-12] MEDS ORDERED: BISACODYL 10 MG SUPP RECTAL PRN (12:48)
[2017-10-12 13:07] VITALS: BMI 35.5
[2017-10-12] MEDS ORDERED: SCOPOLAMINE 1.5MG/72HR PATCH TRANSDERM SCH (16:00)
--- NOTE | 2017-10-12 16:36 | P.PN ---
Subjective Progress Note Date: 10/12/17 Principal diagnosis: Acute hypoxic respiratory failure secondary to CVA This is an 86-year-old female patient, known history of hypertension and hyperlipidemia who was in the state of health who was brought into the emergency department unresponsive. The patient arrived to the emergency department yesterday completely unresponsive with agonal breathing. Apparently she was being bagged by an Amb[facility] bag on the way by EMS. Immediately patient was intubated and placed on mechanical ventilator. She was withdrawing only to painful stimulation. The withdrawal was better seen on the right side compared to the left. He was worked in point bilaterally 1 mm on the left and 2 mm on the right. She had a downward gaze. No seizure activity. Babinski was positive on the left. The patient had no seizure activity. The patient did not have any cardiac arrhythmias pH remained hemodynamically stable. No 7 atrial fibrillation. No drug abuse. No fall or trauma to the head. This was rather acute events. Immediately CAT scan of the brain was done and showed no evidence of any acute intracranial hemorrhage or midline shift. The ventricular sulci were prominent and there was diffuse cerebral atrophy. The CAT scan of the cervical spine showed dextro convex scoliosis and evidence of multilevel spurring and disc space narrowing from C3-C4 and C5-C6. There was also multilevel degenerative changes involving the cervical spine. There was no evidence of any fracture. A CT of the head was also done that showed no evidence of any significant stenosis in the common or internal carotid arteries bilaterally. 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 Note that the presentation was acute. A stroke alert was called and the patient was not found to be a candidate for thrombolytics This morning the patient is being seen in the intensive care unit. She is withdrawing to painful stimulation more so on the right compared to the left. Motor function is diminished on the left. There is possible but scan of the left. Pupils are the same. She is on a mechanical ventilator with an FiO2 of 50% and a PEEP of 5 and total volume of 500 with a rate of 16 and the patient's blood gases showed a pH of 7.4 with a pCO2 of 40 and pO2 113 pH chest x-ray shows no acute abnormalities other than some cardiomegaly and small left-sided pleural effusion and ET tube is in a good location. The patient is hemodynamically stable. Systolic blood pressures around 124 and the highest being in the 160 range. All of the blood work is within normal limits. Urine drug screen is within normal limits. No reported drug overdose. Neurology consultation is been requested. Patient was seen on 10/10/2017, remains on mechanical ventilation, and ventilator settings are tidal volume of 400, assist control rate of 18, FiO2 of 45%, and PEEP of 5. ABG showed a pO2 of 105 pCO2 of 37 pH of 7.41. Chest x- ray showed cardiomegaly, some pulmonary vascular congestion, and patchy right basilar atelectasis. Patient remains unresponsive, but she withdraws to painful stimuli. Seems to have significant left-sided hemiplegia. Labs were reviewed CBC is relatively normal, basic metabolic profile is relatively normal. Neurology consultation was reviewed, and condition was discussed with family at bedside. On 10/11/2017, patient remains on mechanical ventilation, her ventilator settings are tidal volume of 400 assist control rate of 18 FiO2 of 45% and PEEP of 5. ABG showed a pO2 of 83 pCO2 of 36 pH of 7.41. CBC and basic metabolic profile are normal. Repeat CT of the brain showed evolving changes of the known subacute right posterior cerebral territory artifact with a greater degree of hypodensity. There is also some apparent smaller acute to subacute left BUSINESS LAW TEACHER territory infarct. There is also suggestion of intra-arterial clot. Chest x-ray showed cardiomegaly, and minimal congestion with left basilar atelectasis. Clinically the patient remains unresponsive, she is moving the right side, but no movement whatsoever on the left side. Patient withdraws only to deep painful stimuli on the right side. On 10/12/2017 patient was seen on medical surgical floor. The patient's family had an extensive discussion with the neurologist, regarding the extent of patient's neurological damage related to progression of her strokes, and worsening signs of new areas of infarction, seen on the follow-up CAT scan of the brain from 10/11 2017. There was also evidence of brain stem and right cerebellar infarctions, and all this was discussed with the family will be admitted decision to proceed with extubation, and comfort care measures. Patient's has been extubated, and transferred to regular medical surgical floor. She seen this morning, she is unresponsive, she is on room air, and does not seem to be in any distress. She has been enrolled in hospice and comfort care protocol has been initiated. We will sign off at this time. Objective - Vital Signs Vital signs: Intake & Output 10/11/17 10/12/17 10/12/17 18:59 06:59 18:59 Intake Total 0 Balance 0 Weight 91 kg Intake: Oral 0 Other: Voiding Method Indwelling Catheter - Exam Physical Exam: Revealed an 86-year-old female,comatose, no response to deep painful stimuli, in no distress, on room air Head: Atraumatic, normocephalic. Endotracheal tube and orogastric tube are intact. HEENT:[Neck is supple.] [No neck masses.] [No thyromegaly.] [No JVD.] No icterus. Moist mucous membranes noted. Chest: [Clear throughout, no crackles, no rhonchi, no wheezes.] Symmetrical expansion, no chest wall tenderness. Cardiac Exam: [Normal S1 and S2, no S3 gallop, no murmur.] Abdomen: [Soft, nontender, no megaly, no rebound, no guarding, normal bowel sounds.] Extremities: [No clubbing, no edema, no cyanosis.] Neurological Exam: Unresponsive, and there is significant left-sided weakness noted. No response to deep painful stimuli. No movement noted on the left side however. Deep tendon reflexes are 1+ in all 4 extremities. No hyperreflexia. Downward gaze is noted. Lymphatics: No lymphadenopathy. Psychiatric: Cannot be addressed. Skin: No rashes. Assessment and Plan Plan: Assessment: 1 acute right sided arterial ischemic stroke involving the territory of the right BUSINESS LAW TEACHER and left BUSINESS LAW TEACHER. There was also evidence of brain stem and right cerebellar infarctions. As noted on the CT of the brain today. 2 acute hypoxic respiratory failure requiring intubation and mechanical ventilation, patient could not protect her airways upon presentation. Patient was also noted to have agonal breathing on presentation. 3 acute syncope and collapse secondary to CVA. 4 multiple comorbidities including benign essential hypertension and hyperlipidemia. Recommendation: The patient did not demonstrate any neurological recovery, and CAT scan showed progression of her stroke with worsening signs of new areas of infarction. This was discussed with the family who had made the decision to proceed with extubation, and comfort care protocol. Patient had been extubated, and comfort care measures were initiated. We will sign off at this time I performed a history & physical examination of the patient and discussed their management with my nurse practitioner, Claudine Huston. I reviewed the nurse practitioner's note and agree with the documented findings and plan of care. Lung sounds are positive for positive for scattered rhonchi. The findings and the impression was discussed with the patient. I attest to the documentation by the nurse practitioner. Time with Patient: Less than 30
--- NOTE | 2017-10-12 16:48 | P.HPIM ---
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 Patient is not even responding to painful stool at this time patient is inpatient hospice. All other medications were discontinued and patient is only on comfort medications at this time Review of Systems Irrelevant at this time Past Medical History Past Medical History: Hyperlipidemia, Hypertension Additional Past Medical History / Comment(s): HAD POSITIVE GUAC TEST, HX OF POLYPS History of Any Multi-Drug Resistant Organisms: None Reported Past Surgical History: Cholecystectomy, Joint Replacement Additional Past Surgical History / Comment(s): left knee Past Anesthesia/Blood Transfusion Reactions: No Reported Reaction Past Psychological History: No Psychological Hx Reported Smoking Status: Never smoker Past Alcohol Use History: None Reported Past Drug Use History: None Reported - Past Family History Mother Family Medical History: Cancer Additional Family Medical History / Comment(s): COLON, LUNG Brother(s) Family Medical History: Cancer Additional Family Medical History / Comment(s): X2 BROTHERS Medications and Allergies Home Medications Medication Instructions Recorded Confirmed Type Fenofibrate [Tricor] 54 mg PO HS 03/24/14 10/12/17 History Losartan Potassium [Cozaar] 100 mg PO QAM 03/24/14 10/12/17 History amLODIPine [Norvasc] 10 mg PO QAM 03/24/14 10/12/17 History Atorvastatin [Lipitor] 80 mg PO HS 05/01/16 10/12/17 History Allergies Allergy/AdvReac Type Severity Reaction Status Date / Time amoxicillin Allergy Rash/Hives Verified 11/22/16 09:19 neomycin Allergy PER Verified 11/22/16 09:19 ALLERGY TESTING adhesive tape AdvReac RED SKIN, Verified 11/22/16 09:39 Physical Exam Vitals: Intake and Output 10/12/17 10/12/17 10/12/17 06:59 14:59 22:59 Intake Total 0 Balance 0 Intake: Oral 0 Other: Voiding Method Indwelling Catheter Weight 91 kg 91 kg GENERAL: She was extubated appears to be comfortable breathing is stable not arousable HEENT: Absent corneal and conjunctival reflexes. CARDIOVASCULAR: S1 and S2 present. No murmurs, rubs, or gallops. PULMONARY: Chest is clear to auscultation, no wheezing or crackles. ABDOMEN: Soft, nontender, nondistended, normoactive bowel sounds. No palpable organomegaly. MUSCULOSKELETAL: No joint swelling or deformity. EXTREMITIES: No cyanosis, clubbing, or pedal edema. NEUROLOGICAL: Unable to assess SKIN: No rashes. Assessment and Plan Plan: Assessment and Plan Plan: -Ischemic stroke extensive bilateral brainstem involvement without any significant improvement. Patient is hospice as mentioned above. And given comfort medications -Acute hypoxic respiratory failure secondary to stroke and patient is intubated for airway protection. . And is extubated and presently hospice -Hypertension -Hyperlipidemia
[2017-10-13] MEDS ORDERED: LORazepam 1 MG TAB PO PRN (09:26)
[2017-10-13] MEDS ORDERED: ACETAMINOPHEN SUPPOSITORY 650 MG SUPP RECTAL PRN (09:27)
[2017-10-13] MEDS ORDERED: MORPHINE CONC SOLN 10mg/0.5mL ORAL SYRG PO PRN (09:27)
[2017-10-13] MEDS ORDERED: HYOSCYAMINE SULFATE 0.125 MG TAB PO PRN (09:30)
[2017-10-13] MEDS ORDERED: ONDANSETRON ODT 4 MG TAB PO PRN (09:31)
--- NOTE | 2017-10-13 10:15 | P.DS ---
Providers Date of admission: 10/13/17 07:46 Attending physician: Laz Peña [facility] Course: [facility]. Patient has extensive stroke involving both right and left posterior several arteries. Patient is barely responsive but patient is comfortable at this point of time. Patient Condition at Discharge: Good Plan - Discharge Summary New Discharge Prescriptions: No Action amLODIPine [Norvasc] 10 mg PO QAM Losartan Potassium [Cozaar] 100 mg PO QAM Fenofibrate [Tricor] 54 mg PO HS Atorvastatin [Lipitor] 80 mg PO HS Discharge Medication List Fenofibrate [Tricor] 54 mg PO HS 03/24/14 [History] Losartan Potassium [Cozaar] 100 mg PO QAM 03/24/14 [History] amLODIPine [Norvasc] 10 mg PO QAM 03/24/14 [History] Atorvastatin [Lipitor] 80 mg PO HS 05/01/16 [History]
[2017-10-14] MEDS ORDERED: BISACODYL 10 MG SUPP RECTAL SCH (09:00)
[2017-10-15] MEDS ORDERED: SCOPOLAMINE 1.5MG/72HR PATCH TRANSDERM SCH (16:00)
--- NOTE | 2017-10-18 08:48 | CDI ---
Last Revision, February 2017 Documentation Clarification Form Date: 10/18/2017 8:44:03 AM From: Karol Khoury Phone: If you have a question regarding this query, please contact Keli Viveros at [phone] between 8am and 5pm Admit Date: 10/13/2017 7:46:00 AM Patient Name: Megha Piedra Visit Number: [id number] Discharge Date: 10/13/17 ATTENTION: The Clinical Documentation Specialists (CDI) and [facility] Coding Staff appreciate your assistance in clarifying documentation. Please respond to the clarification below the line at the bottom and electronically sign. The CDI & [facility] Coding staff will review the response and follow-up if needed. Please note: Queries are made part of the Legal Health Record. If you have any questions, please contact the author of this message via ITS. Dr. 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 There was also evidence of brain stem and right cerebellar infarctions. Clinical Indicators: The patient presented completely unresponsive with agonal breathing. She was withdrawing only to painful stimulation seen better on the right side compared to the left. Downward gaze. The patient also had significant left sided hemiplegia. Risk Factors: Hypertension and hyperlipidemia. Per ICD-10, the coding of CVA requires additional documentation of total NIHSS score to fully explain the patient's condition. In your professional opinion, please clarify the NIHSS score? Total NIHSS Score Other (please specify) Unable to Determine Unable to Determine MTDD
== END 2017-10-13 13:20 | disposition hospice, home (50) | DRG 64 ==
LOC: 5MS5E 12:59 → UNDOADMIN 12:59 → UNDODISIN 19:59 → 5MS5E 10-13 07:46
PROVIDERS: ADMIT Internal Medicine; ATTEND Internal Medicine
PROC: 5A1935Z Respiratory Ventilation, Less than 24 Consecutive Hours (ICD-10-PCS; principal; 2017-10-13)
PROC: 0BH17EZ Insertion of Endotracheal Airway into Trachea, Via Natural or Artificial Opening (ICD-10-PCS; 2017-10-13)
DX: I63.8 Other cerebral infarction (principal); J96.01 Acute respiratory failure with hypoxia; G81.04 Flaccid hemiplegia affecting left nondominant side; J90 Pleural effusion, not elsewhere classified; J98.11 Atelectasis; E78.5 Hyperlipidemia, unspecified; I11.9 Hypertensive heart disease without heart failure; M41.9 Scoliosis, unspecified; M47.812 Spondylosis without myelopathy or radiculopathy, cervical region; I67.1 Cerebral aneurysm, nonruptured; Z79.899 Other long term (current) drug therapy; Z88.1 Allergy status to other antibiotic agents; Z88.0 Allergy status to penicillin; Z91.048 Other nonmedicinal substance allergy status; Z51.5 Encounter for palliative care; Z86.010 Personal history of colon polyps; Z90.49 Acquired absence of other specified parts of digestive tract; Z96.60 Presence of unspecified orthopedic joint implant; Z80.1 Family history of malignant neoplasm of trachea, bronchus and lung; Z80.0 Family history of malignant neoplasm of digestive organs